=== PATIENT | male | born 1960 | race Caucasian/White ===

== ENCOUNTER 2017-03-04 03:18 | Inpatient (IN) | payer SELFPAY ==
[~2017-03-04] VITALS: Ht 180.3 cm; Wt 120.9 kg
[~2017-03-04 03:18] MED LIST: DIAZ5TAB PO; HYDR1TAB8 PO; HYOS0.1283 SL; ONDA4TAB8 PO; ZOLP10TA PO
--- OUTSIDE RECORDS SUMMARY | 2017-03-04 03:24 | XMS REPORT | Continuity of Care Document ---
Author Author [employer] Organization [place] Address Unknown Phone Unavailable Care Team Providers Care Air Tank Assembler Name Role Phone [employer] Unavailable Unavailable Problems Medications Allergies, Adverse Reactions, Alerts Immunizations Results Vital Signs Encounters Location Location Details Encounter Type Encounter Number Reason For Visit Attending Provider ADM Date DC Date Status Source INPATIENT [id number] DEMARIO DIAZ 11/12/2016 Active [facility] O 11/14/2016 Active [facility] Procedures Plan of Care Social History Assessment and Plan Family History Value Date Source Advance Directives Order Name Results Value Date Source
--- OUTSIDE RECORDS SUMMARY | 2017-03-04 03:24 | XMS REPORT | Clinical Summary ---
Author Author [facility] Organization [facility] Address Unknown Phone Unavailable Care Team Providers Care Psychological Examiner Name Role Phone PCP Unavailable Source Comments Some departments are not documenting in the electronic medical record. If you do not see the information that you expected, contact Release of Information in the Health Information Management department at [phone] for further assistance in locating additional records.[facility] Allergies No Known Allergies Current Medications Prescription Sig. Disp. Refills Start End Date Status Date oxycodone(+) (ROXICODONE, Take 20 mg by mouth every Active OXY-IR) 20 mg tablet 4 hours as needed acetaminophen (TYLENOL) Take 2 tablets by mouth 0 11/17/19 Active 500 mg tablet every 8 hours as needed 17 for Pain. Max of 4,000 mg of acetaminophen in 24 hours. gabapentin (NEURONTIN) Take 1 capsule by mouth 270 capsule 3 11/17/19 Active 300 mg capsule every 8 hours. 17 docusate (COLACE) 100 mg Take 1 capsule by mouth 180 capsule 3 Active capsule twice daily as needed for 17 Constipation. Hold for loose stools methocarbamol (ROBAXIN) Take 1 tablet by mouth 90 tablet 3 11/17/19 Active 750 mg tablet three times daily as 17 needed for Spasms. emu Apply to back three times 120 mL 11/17/19 Active a day as needed for pain 17 Active Problems Problem Noted Date Cellulitis 11/12/2016 Neuroforaminal stenosis of lumbar spine 11/12/2016 Cervical stenosis of spinal canal 11/05/2009 Family History Medical History Relation Name Comments Brain Tumor Maternal Grandfather Relation Name Status Comments Maternal Grandfather Social History Tobacco Use Types Packs/Day Years Used Date Current Every Day Smoker 1 38 Smokeless Tobacco: Never Used Alcohol Use Drinks/Week oz/Week Comments Yes rarely Sex Assigned at Date Recorded Not on file Last Filed Vital Signs Vital Sign Reading Time Taken Blood Pressure 140/82 11/16/2016 6:58 AM CDT Pulse 65 11/16/2016 6:58 AM CDT Temperature 36.4 C (97.6 F) 11/16/2016 6:58 AM CDT Respiratory Rate - - Oxygen Saturation 96% 11/16/2016 6:58 AM CDT Inhaled Oxygen - - Concentration Weight 122.5 kg (270 lb) 11/12/2016 1:23 PM CDT Height 180.3 cm (5' 11") 11/12/2016 1:23 PM CDT Body Mass Index 37.66 11/12/2016 1:23 PM CDT Plan of Treatment Health Maintenance Due Date Last Done Comments HEPATITIS C SCREENING 1961 PHYSICAL (COMPREHENSIVE) 01/27/1968 EXAM PERTUSSIS VACCINE 01/27/1972 TETANUS VACCINE 1978 COLORECTAL CANCER 2011 SCREENING INFLUENZA VACCINE 10/16/2016 Results Not on filefrom Last 3 Months
--- OUTSIDE RECORDS SUMMARY | 2017-03-04 03:25 | XMS REPORT ---
Author Author LATRICIA LUCAS [facility] Address [address] [place], [place] [address] Care Team Providers Care Pile Driving Nozzleman Name Role Phone LATRICIA LUCAS PCP Unavailable Allergies and Adverse Reactions Name Reaction Notes NO KNOWN DRUG ALLERGIES Plan of Treatment Not available. Medications Active Name Start Date Estimated Completion Date SIG Comments lisinopril-hydrochlorothiazide 10-12.5 mg oral tablet 04/06/2015 take 1 tablet by oral route once daily OxyContin 15 mg oral tablet,oral only,ext.rel.12 hr 07/15/2015 08/14/2015 take 1 tablet (15 mg) by oral route every 12 hours for 30 days Ambien CR 12.5 mg oral tablet,ext release multiphase 07/15/2015 take 1 tablet (12.5 mg) by oral route once daily at bedtime (for male) Name Start Date Expiration Date SIG Comments prednisone 20 mg oral tablet 04/09/2011 04/17/2011 4X2 days 3X2 days 2X2 days 1X2 Days Flonase 50 mcg/actuation nasal spray,suspension 04/09/2011 spray 1 spray in each nostril by intranasal route 2 times per day Flagyl 500 mg oral tablet 04/09/2011 04/16/2011 one three times daily Xanax 0.5 mg oral tablet 12/15/2013 01/14/2014 1/2 to 1 twice daily as needed for anxiety must last 30 days prednisone 20 mg oral tablet 12/15/2013 12/27/2013 2X4 days 1X4 days 1/2X4 days Celexa 20 mg oral tablet 03/06/2014 06/04/2014 take 1 tablet (20 mg) by oral route once daily for 30 days diazepam 5 mg oral tablet 03/06/2014 1/2 to 1 BID PRN Dexedrine Spansule 10 mg oral capsule, extended release 05/03/2015 06/02/2015 take 1 capsule (10 mg) by oral route once daily for 30 days Levaquin 500 mg oral tablet 06/20/2015 06/30/2015 take 1 tablet (500 mg) by oral route once daily for 10 days prednisone 20 mg oral tablet 06/20/2015 06/28/2015 4x2 days 3x2 days 2x2 days 1x2 days Discontinued Name Start Date Discontinued Date SIG Comments promethazine-codeine 6.25-10 mg/5 mL oral syrup 04/08/2015 07/17/2015 take 5 milliliters by oral route every 4-6 hours as needed, not to exceed 30 mL in 24 hours Ambien 10 mg oral tablet 07/05/2015 07/17/2015 take 1 tablet (10 mg) by oral route once daily at bedtime for 30 days Problem List Description Status Onset Eustachian Tube Dysfunction Active Depressive Disorder Active 03/06/2014 Insomnia Active 03/06/2014 Insomnia Active 12/31/2014 Hypersomnolence disorder, acute, moderate Active 05/03/2015 Insomnia, unspecified type Active 05/03/2015 NINA on CPAP Active 05/03/2015 Essential Hypertension Active 05/03/2015 Vital Signs Date Time BP-Sys(mm[Hg] BP-Malia(mm[Hg]) HR(bpm) RR(rpm) Temp WT HT HC BMI BSA BMI Percentile O2 Sat(%) 07/12/2015 10:11:00 AM 152 mmHg 70 mmHg 90 bpm 16 rpm 95.8 F 269 lbs 71 in 37.52 kg/m2 2.47 m2 95 % 05/03/2015 7:34:00 AM 120 mmHg 76 mmHg 96 bpm 20 rpm 98.2 F 250 lbs 71 in 34.8676 kg/m 2.3834 m 96 % 03/23/2015 1:34:00 PM 158 mmHg 92 mmHg 92 bpm 16 rpm 97.9 F 261 lbs 71 in 36.40 kg/m2 2.44 m2 96 % 01/07/2015 11:10:00 AM 250 lbs 71 in 34.8676 kg/m 2.3834 m 12/28/2014 10:24:00 AM 165 mmHg 95 mmHg 96 bpm 18 rpm 98.6 F 259 lbs 71 in 36.12 kg/m2 2.43 m2 96 % 03/05/2014 9:18:00 AM 160 mmHg 80 mmHg 106 bpm 20 rpm 97.5 F 262 lbs 71 in 36.5412 kg/m 2.4399 m 94 % 12/15/2013 8:23:00 AM 140 mmHg 76 mmHg 80 bpm 20 rpm 98.6 F 245 lbs 71 in 34.17 kg/m2 2.36 m2 99 % 12/15/2012 1:25:00 PM 204 mmHg 98 mmHg 122 bpm 24 rpm 98.2 F 257 lbs 71 in 35.8439 kg/m 2.4165 m 97 % 04/09/2011 10:30:00 AM 158 mmHg 100 mmHg 84 bpm 224 lbs 71 in 31.24 kg/m2 2.26 m2 Social History Name Description Comments Tobacco Current every day smoker Alcohol Use History of Procedures Date Ordered Description Order Status 01/07/2015 12:00 AM METABOLIC PANEL TOTAL CA Reviewed 01/07/2015 12:00 AM ASSAY OF PSA TOTAL Reviewed 01/07/2015 12:00 AM ELECTROCARDIOGRAM COMPLETE Reviewed 04/08/2015 12:00 AM Decadron, Per 1 Mg [facility]# [address]-63 Reviewed 05/03/2015 12:00 AM Decadron, Per 1 Mg [facility]# [address]-10 Reviewed 07/12/2015 12:00 AM MRI LUMBAR SPINE W/O DYE Returned 07/12/2015 12:00 AM MRI CHEST SPINE W/O DYE Returned 12/15/2012 12:00 AM CAPILLARY BLOOD DRAW Reviewed 12/15/2012 12:00 AM GLUCOSE BLOOD TEST Reviewed 12/15/2012 12:00 AM GLUCOSE BLOOD TEST Reviewed 12/15/2012 12:00 AM ELECTROCARDIOGRAM COMPLETE Reviewed 10/31/2009 12:00 AM MUSCLE TEST 3 LIMBS Reviewed 10/31/2009 12:00 AM NERVE CONDUCTION, MOTOR Reviewed 10/31/2009 12:00 AM NERVE CONDUCTION, SENSORY Reviewed Results Summary Data and Description Results 01/07/2015 12:25 PM GLUCOSE 89.0 mg/dLSODIUM 137.0 mmol/LPOTASSIUM 5.10 mmol/ LCHLORIDE 98.0 mmol/LCO2 30.0 mmol/LBUN 15.0 mg/dLCREATININE 0.80 mg/dLCALCIUM 9.90 mg/dLeGFR >60 mL/min/1.73mPSA TOTAL 0.450 ng/mL History Of Immunizations Not available. History of Past Illness Name Date of Onset Comments Eustachian Tube Dysfunction Pain in limb Oct 31 2009 12:07PM Skin Sensation Disturbance Oct 31 2009 12:07PM Muscle weakness Oct 31 2009 12:07PM Depressive Disorder 03/06/2014 secondary to the unexpect loss of his son Insomnia 12/31/2014 Hypersomnolence disorder, acute, moderate 05/03/2015 Insomnia, unspecified type 05/03/2015 NINA on CPAP 05/03/2015 Essential Hypertension 05/03/2015 Eustachian Tube Dysfunction Apr 09 2011 10:32AM Post-nasal drainage Apr 09 2011 10:32AM Abdominal Pain, Generalized Dec 15 2012 1:26PM Nausea Dec 15 2012 1:26PM Weakness Dec 15 2012 1:26PM Dizziness Dec 17 2012 10:07AM Depressive Disorder Dec 15 2013 8:24AM Tobacco Abuse Dec 15 2013 8:24AM Sinusitis Dec 15 2013 8:24AM Depressive Disorder Mar 05 2014 9:18AM Insomnia Mar 05 2014 9:18AM Insomnia Dec 28 2014 10:24AM Abdominal pain Jan 07 2015 11:31AM Upper abdominal pain Jan 07 2015 11:31AM Chest pain Jan 07 2015 11:31AM Screening for prostate cancer Jan 07 2015 11:31AM Moderate Cough Worsening Mar 23 2015 1:38PM Acute bronchitis, unspecified organism Mar 23 2015 1:38PM Upper respiratory tract infection, unspecified upper respiratory infection Mar 23 2015 1:38PM Moderate Acute Respiratory System And Chest Symptoms Mar 23 2015 1:38PM Moderate Chronic Smoker Mar 23 2015 1:38PM Moderate Acute Respiratory System And Chest Symptoms May 03 2015 7:35AM Moderate Acute Nasal congestion May 03 2015 7:35AM Moderate NINA on CPAP Stable May 03 2015 7:35AM Insomnia, unspecified type May 03 2015 7:35AM Hypersomnolence disorder, acute, moderate May 03 2015 7:35AM Essential hypertension Stable May 03 2015 7:35AM Lumbar back pain Jul 12 2015 9:01AM Thoracic back pain Jul 12 2015 9:01AM Essential Hypertension Jul 12 2015 10:11AM Bilateral low back pain with sciatica, sciatica laterality unspecified Jul 12 2015 10:11AM Anxiety Disorder Jul 12 2015 10:11AM Lumbar spondylosis with myelopathy Jul 12 2015 10:11AM Primary insomnia Jul 12 2015 10:11AM Lumbar back pain Jul 18 2015 4:37PM Payers Insurance Name Company Name Plan Name Plan Number Policy Number Policy Group Number Start Date [employer]BS [facility] [id number] N/A History of Encounters Visit Date Visit Type Provider 07/12/2015 Office visit LATRICIA MOORE 05/31/2015 [facility] Sherif Gu MD 05/03/2015 Office visit LATRICIA MOORE 03/23/2015 Office visit LATRICIA MOORE 01/24/2015 [facility] Mei Merino MD 01/07/2015 [facility] Sherif Gu MD 01/07/2015 Office visit Mei Merino MD 12/28/2014 Office visit LATRICIA MOORE 03/05/2014 Office visit LATRICIA MOORE 12/15/2013 Office visit LATRICIA MOORE 12/15/2012 Office visit LATRICIA MOORE 04/09/2011 Office visit LATRICIA MOORE 10/31/2009 Procedures Mike Orozco MD
--- OUTSIDE RECORDS SUMMARY | 2017-03-04 03:25 | XMS REPORT ---
Author Author LATRICIA LUCAS [facility] Address [address] [place], [place] [id number] Care Team Providers Care Golf Tournament Consultant Name Role Phone LATRICIA LUCAS PCP Unavailable Allergies and Adverse Reactions Name Reaction Notes NO KNOWN DRUG ALLERGIES Plan of Treatment Not available. Medications Active Name Start Date Estimated Completion Date SIG Comments lisinopril-hydrochlorothiazide 10-12.5 mg oral tablet 04/06/2015 take 1 tablet by oral route once daily promethazine-codeine 6.25-10 mg/5 mL oral syrup 04/08/2015 take 5 milliliters by oral route every 4-6 hours as needed, not to exceed 30 mL in 24 hours prednisone 20 mg oral tablet 05/03/2015 05/11/2015 4x2 days 3x2 days 2x2 days 1x2 days Dexedrine Spansule 10 mg oral capsule, extended release 05/03/2015 06/02/2015 take 1 capsule (10 mg) by oral route once daily for 30 days Levaquin 500 mg oral tablet 05/03/2015 05/13/2015 take 1 tablet (500 mg) by oral route once daily for 10 days Name Start Date Expiration Date SIG Comments [...] tablet 03/06/2014 1/2 to 1 BID PRN Ambien 10 mg oral tablet 12/31/2014 03/01/2015 take 1 tablet (10 mg) by oral route once daily at bedtime for 30 days Problem List Description Status Onset Eustachian Tube Dysfunction Active Depressive Disorder Active 03/06/2014 Insomnia Active 03/06/2014 Insomnia Active 12/31/2014 Hypersomnolence disorder, acute, moderate Active 05/03/2015 Insomnia, unspecified type Active 05/03/2015 NINA on CPAP Active 05/03/2015 Essential hypertension Active 05/03/2015 Vital Signs Date Time BP-Sys(mm[Hg] BP-Malia(mm[Hg]) HR(bpm) RR(rpm) Temp WT HT HC BMI BSA BMI Percentile O2 Sat(%) 05/03/2015 7:34:00 AM 120 mmHg 76 mmHg 96 bpm 20 rpm 98.2 F 250 lbs 71 in 34.87 kg/m2 2.38 m2 96 % 03/23/2015 1:34:00 PM 158 mmHg 92 mmHg 92 bpm 16 rpm 97.9 F 261 lbs 71 in 36.4017 kg/m 2.4353 m 96 % 01/07/2015 11:10:00 AM 250 lbs 71 in 34.87 kg/m2 2.38 m2 12/28/2014 10:24:00 AM 165 mmHg 95 mmHg 96 bpm 18 rpm 98.6 F 259 lbs 71 in 36.1228 kg/m 2.4259 m 96 % 03/05/2014 9:18:00 AM 160 mmHg 80 mmHg 106 bpm 20 rpm 97.5 F 262 lbs 71 in 36.54 kg/m2 2.44 m2 94 % 12/15/2013 8:23:00 AM 140 mmHg 76 mmHg 80 bpm 20 rpm 98.6 F 245 lbs 71 in 34.17 kg/m2 2.3595 m 99 % 12/15/2012 1:25:00 PM 204 mmHg 98 mmHg 122 bpm 24 rpm 98.2 F 257 lbs 71 in 35.8439 kg/m 2.42 m2 97 % 04/09/2011 10:30:00 AM 158 mmHg 100 mmHg 84 bpm 224 lbs 71 in 31.24 kg/m2 2.2561 m Social History Name Description Comments Tobacco Current every day smoker Alcohol Use History of Procedures Date Ordered Description Order Status 01/07/2015 12:00 AM METABOLIC PANEL TOTAL CA Reviewed 01/07/2015 12:00 AM ASSAY OF PSA TOTAL Reviewed 01/07/2015 12:00 AM ELECTROCARDIOGRAM COMPLETE Reviewed 04/08/2015 12:00 AM Edgardo Perez 1 Mg [facility]# [id number] Reviewed 12/15/2012 12:00 AM CAPILLARY BLOOD DRAW Reviewed [...] type 05/03/2015 NINA on CPAP 05/03/2015 Essential hypertension 05/03/2015 Eustachian Tube Dysfunction Apr 09 2011 [...] Essential hypertension Stable May 03 2015 7:35AM Payers Insurance Name Company Name Plan Name Plan Number Policy Number Policy Group Number Start Date BCBS [facility] [id number] N/A History of Encounters Visit Date Visit Type Provider 05/03/2015 Office visit LATRICIA MOORE 03/23/2015 Office visit LATRICIA MOORE 01/24/2015 [facility] Mei Meirno MD 01/07/2015 [facility] Sherif Gu MD 01/07/2015 Office visit Mei Merino MD 12/28/2014 Office visit LATRICIA MOORE 03/05/2014 Office visit LATRICIA MOORE 12/15/2013 Office visit LATRICIA MOORE 12/15/2012 Office visit LATRICIA MOORE 04/09/2011 Office visit LATRICIA MOORE 10/31/2009 Procedures Mike Orozco MD
--- OUTSIDE RECORDS SUMMARY | 2017-03-04 03:25 | XMS REPORT ---
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
--- OUTSIDE RECORDS SUMMARY | 2017-03-04 03:25 | XMS REPORT ---
Author Author LATRICIA LUCAS [facility] Address [address] [place], [place] [id number] Care Team Providers Care Driver Recruiter Name Role Phone LATRICIA LUCAS PCP Unavailable LATRICIA LUCAS PreferredProvider Unavailable Allergies and Adverse Reactions Name Reaction Notes NO KNOWN DRUG ALLERGIES Plan of Treatment Planned Activity Comments Planned Date Planned Time Plan/Goal CBC with Differential 09/13/2016 12:00 AM CMP 09/13/2016 12:00 AM .Lipid Panel 09/13/2016 12:00 AM Medications Active Name Start Date Estimated Completion Date SIG Comments meloxicam 15 mg oral tablet 02/20/2016 take 1 tablet (15 mg) by oral route once daily lisinopril-hydrochlorothiazide 10-12.5 mg oral tablet 06/22/2016 take 1 tablet by oral route once daily Xanax 0.5 mg oral tablet 07/04/2016 take 1 tablet (0.5 mg) by oral route 3 times per day PRN anxiety hydrocodone-ibuprofen 7.5-200 mg oral tablet 08/14/2016 take 1 tablet by oral route every 6 hours as needed for pain not to exceed 5 tablets in 24hrs oxycodone 20 mg oral tablet 09/13/2016 10/13/2016 take 1 tablet (20 mg) by oral route every 4 hours for 30 days Name Start Date Expiration Date SIG [...] days 3x2 days 2x2 days 1x2 days OxyContin 20 mg oral tablet,oral only,ext.rel.12 hr 08/18/2015 09/17/2015 take 1 tablet (20 mg) by oral route every 12 hours for 30 days diazepam 5 mg oral tablet 09/02/2015 10/02/2015 1 tablet at bedtime prednisone 20 mg oral tablet 10/17/2015 10/25/2015 4x2 days 3x2 days 2x2 days 1x2 days phentermine 37.5 mg oral tablet 10/17/2015 11/16/2015 1 po in the am Bactrim DS 800-160 mg oral tablet 12/29/2015 01/12/2016 take 1 tablet by oral route 2 times a day for 14 days furosemide 40 mg oral tablet 06/22/2016 07/22/2016 take 1 tablet by oral route BID for 2 days then one daily Discontinued Name Start Date Discontinued Date SIG Comments promethazine-codeine 6.25-10 mg/5 mL oral syrup 04/08/2015 07/17/2015 take 5 milliliters by oral route every 4-6 hours as needed, not to exceed 30 mL in 24 hours Ambien 10 mg oral tablet 07/05/2015 07/17/2015 take 1 tablet (10 mg) by oral route once daily at bedtime for 30 days Ambien CR 12.5 mg oral tablet,ext release multiphase 07/15/2015 08/05/2015 take 1 tablet (12.5 mg) by oral route once daily at bedtime (for male) Robaxin 500 mg oral tablet 08/05/2015 08/18/2015 take 2 tablets (1,000 mg) by oral route 4 times per day OxyContin 15 mg oral tablet,oral only,ext.rel.12 hr 08/05/2015 08/18/2015 take 1 tablet (15 mg) by oral route every 12 hours for 30 days Problem List Description Status Onset Eustachian Tube Dysfunction Active Depressive Disorder Active 03/06/2014 Insomnia Active 03/06/2014 Insomnia Active 12/31/2014 Hypersomnolence disorder, acute, moderate Active 05/03/2015 Insomnia, unspecified type Active 05/03/2015 NINA on CPAP Active 05/03/2015 Essential hypertension Active 05/03/2015 Lumbar radiculitis Active 08/08/2015 Lumbar degenerative disc disease Active 08/08/2015 Spinal stenosis of lumbar region Active 08/08/2015 EVANGELINA (generalized anxiety disorder) Active 12/25/2015 Medication management Active 06/22/2016 Vital Signs Date Time BP-Sys(mm[Hg] BP-Malia(mm[Hg]) HR(bpm) RR(rpm) Temp WT HT HC BMI BSA BMI Percentile O2 Sat(%) 06/19/2016 8:37:00 AM 148 mmHg 80 mmHg 82 bpm 18 rpm 98.2 F 258 lbs 70 in 37.02 kg/m2 2.40 m2 94 % 02/20/2016 8:54:00 AM 150 mmHg 98 mmHg 88 bpm 16 rpm 98.2 F 273 lbs 71 in 38.0754 kg/m 2.4906 m 95 % 12/29/2015 7:47:00 AM 155 mmHg 82 mmHg 82 bpm 16 rpm 98 F 271 lbs 71 in 37.80 kg/m2 2.48 m2 97 % 12/19/2015 8:07:00 AM 142 mmHg 98 mmHg 95 bpm 16 rpm 97.8 F 268 lbs 71 in 37.378 kg/m 2.4677 m 97 % 10/17/2015 4:13:00 PM 140 mmHg 92 mmHg 82 bpm 18 rpm 97.1 F 271 lbs 71 in 37.80 kg/m2 2.48 m2 98 % 08/18/2015 2:44:00 PM 128 mmHg 72 mmHg 90 bpm 16 rpm 97.4 F 270 lbs 71 in 37.657 kg/m 2.4769 m 94 % 08/05/2015 10:02:00 AM 142 mmHg 80 mmHg 96 bpm 18 rpm 98.2 F 264 lbs 71 in 36.82 kg/m2 2.45 m2 90 % 07/12/2015 10:11:00 AM 152 mmHg 70 mmHg 90 bpm 16 rpm 95.8 F 269 lbs 71 in 37.5175 kg/m 2.4723 m 95 % 05/03/2015 7:34:00 AM 120 mmHg [...] 04/08/2015 12:00 AM Decadron, Per 1 Mg ND# [id number] Reviewed 05/03/2015 12:00 AM Decadron, Per 1 Mg NDC# [address]-09 Reviewed 07/12/2015 12:00 AM MRI LUMBAR SPINE W/O DYE Returned 07/12/2015 12:00 AM MRI CHEST SPINE W/O DYE Returned 07/18/2015 12:00 AM INJECT SPINE LUMBAR/SACRAL Returned 08/18/2015 12:00 AM ASSAY THYROID STIM HORMONE Returned 12/29/2015 12:00 AM EXTREMITY STUDY Returned 09/13/2016 12:00 AM ROUTINE VENIPUNCTURE Reviewed 12/15/2012 12:00 AM CAPILLARY BLOOD DRAW Reviewed 12/15/2012 12:00 AM GLUCOSE BLOOD TEST Reviewed 12/15/2012 12:00 AM GLUCOSE BLOOD TEST Reviewed 12/15/2012 12:00 AM ELECTROCARDIOGRAM COMPLETE Reviewed 10/31/2009 12:00 AM MUSCLE TEST 3 LIMBS Reviewed 10/31/2009 12:00 AM NERVE CONDUCTION, MOTOR Reviewed 10/31/2009 12:00 AM NERVE CONDUCTION, SENSORY Reviewed Results Summary Date and Description Results 01/07/2015 12:25 PM GLUCOSE 89.0 mg/dLSODIUM 137.0 mmol/LPOTASSIUM 5.10 mmol/ LCHLORIDE 98.0 mmol/LCO2 30.0 mmol/LBUN 15.0 mg/dLCREATININE 0.80 mg/dLCALCIUM 9.90 mg/dLAGE 54 GFR NonAA 101 GFR AA 122 eGFR >60 mL/min/1.73meGFR AA* >60 PSA TOTAL 0.450 ng/mL 08/18/2015 3:45 PM TSH 1.190 uIU/mL History Of Immunizations Not available. History of [...] NINA on CPAP 05/03/2015 Essential hypertension 05/03/2015 Lumbar radiculitis 08/08/2015 Lumbar degenerative disc disease 08/08/2015 Spinal stenosis of lumbar region 08/08/2015 EVANGELINA (generalized anxiety disorder) 12/25/2015 Medication management 06/22/2016 Eustachian Tube Dysfunction Apr 09 2011 10:32AM [...] Lumbar back pain Jul 18 2015 4:37PM Moderate Acute Lumbar radiculitis Aug 05 2015 10:03AM Moderate Lumbar degenerative disc disease Aug 05 2015 10:03AM Moderate Spinal stenosis of lumbar region Aug 05 2015 10:03AM Low back pain Aug 18 2015 2:47PM Essential hypertension Aug 18 2015 2:47PM Insomnia Aug 18 2015 2:47PM Obesity (BMI 30-39.9) Aug 18 2015 2:47PM Essential hypertension with goal blood pressure less than 130/80 Oct 17 2015 4:13PM Acute bilateral low back pain with bilateral sciatica Oct 17 2015 4:13PM Moderate Chronic Tobacco Abuse Oct 17 2015 4:13PM Obesity Oct 17 2015 4:13PM Hypersomnolence disorder, acute, moderate Oct 17 2015 4:13PM Insomnia, unspecified type Oct 17 2015 4:13PM Lumbar degenerative disc disease Oct 17 2015 4:13PM NINA on CPAP Oct 17 2015 4:13PM Spinal stenosis of lumbar region Oct 17 2015 4:13PM Tobacco Abuse Dec 19 2015 8:08AM Chronic Obstructive Pulmonary Disease Dec 19 2015 8:08AM Hypersomnolence disorder, acute, moderate Dec 19 2015 8:08AM Insomnia Dec 19 2015 8:08AM Lumbar degenerative disc disease Dec 19 2015 8:08AM Lumbar radiculitis Dec 19 2015 8:08AM NINA on CPAP Dec 19 2015 8:08AM Spinal stenosis of lumbar region Dec 19 2015 8:08AM EVANGELINA (generalized anxiety disorder) Dec 19 2015 8:08AM Edema Dec 29 2015 7:39AM Moderate Right Lower Pain Dec 29 2015 7:39AM Cellulitis of right lower extremity Dec 29 2015 7:47AM Moderate Acute Peripheral edema Dec 29 2015 7:47AM Moderate Essential Hypertension Feb 20 2016 8:55AM EVANGELINA (generalized anxiety disorder) Feb 20 2016 8:55AM Hypersomnolence disorder, acute, moderate Feb 20 2016 8:55AM Lumbar radiculitis Feb 20 2016 8:55AM NINA on CPAP Feb 20 2016 8:55AM Spinal stenosis of lumbar region Feb 20 2016 8:55AM Lumbago with sciatica, left side Jun 19 2016 8:37AM Lumbago with sciatica, right side Jun 19 2016 8:37AM Other chronic pain Jun 19 2016 8:37AM Essential hypertension Jun 19 2016 8:37AM EVANGELINA (generalized anxiety disorder) Jun 19 2016 8:37AM Hypersomnolence disorder, acute, moderate Jun 19 2016 8:37AM Insomnia Jun 19 2016 8:37AM Lumbar degenerative disc disease Jun 19 2016 8:37AM Lumbar radiculitis Jun 19 2016 8:37AM Obstructive sleep apnea (adult) (pediatric) Jun 19 2016 8:37AM Dependence on other enabling machines and devices Jun 19 2016 8:37AM Spinal stenosis of lumbar region Jun 19 2016 8:37AM Medication management Jun 19 2016 8:37AM nursing home prescription opiate use Sep 13 2016 9:30AM Hyperlipidemia, mild Sep 13 2016 9:30AM Prostate cancer screening Sep 13 2016 9:30AM Fatigue Sep 13 2016 9:30AM Payers Insurance Name Company Name Plan Name Plan Number Policy Number Policy Group Number [id number]A History of Encounters Visit Date Visit Type Provider 09/13/2016 Office visit LATRICIA MOORE 06/19/2016 Office visit LATRICIA MOORE 02/20/2016 Office visit LATRICIA MOORE 12/29/2015 Office visit LATRICIA MOORE 12/19/2015 Office visit LATRICIA MOORE 10/17/2015 Office visit LATRICIA MOORE 08/18/[address] Keanu Lane MD 08/05/2015 Office visit LATRICIA MOORE 07/12/2015 Office visit LATRICIA MOORE 05/31/2015 Hospital Sherif Gu MD 05/03/2015 Office visit LATRICIA MOORE 03/23/2015 Office visit LATRICIA MOORE 01/24/2015 [facility] Mei Merino MD 01/07/2015 [facility] Sherif Gu MD 01/07/2015 Office visit Mei Merino MD 12/28/2014 Office visit LATRICIA MOORE 03/05/2014 Office visit LATRICIA MOORE 12/15/2013 Office visit LATRICIA MOORE 12/15/2012 Office visit LATRICIA MOORE 04/09/2011 Office visit LATRICIA MOORE 10/31/2009 Procedures Mike Orozco MD
--- OUTSIDE RECORDS SUMMARY | 2017-03-04 03:26 | XMS REPORT ---
Author Author LATRICIA LUCAS [facility] Address [address] [place], [place] [address] Care Team Providers Care Dietitian Consultant Name Role Phone LATRICIA LUCAS PCP LATRICIA LUCAS PreferredProvider Allergies and Adverse Reactions Name Reaction Notes NO KNOWN DRUG ALLERGIES Plan of Treatment Planned Activity Comments Planned Date Planned Time Plan/Goal CBC with Differential 02/18/2017 12:00 AM Medications Active Name Start Date Estimated Completion Date SIG Comments meloxicam 15 mg oral tablet 02/20/2016 take 1 tablet (15 mg) by oral route once daily lisinopril-hydrochlorothiazide 10-12.5 mg oral tablet 06/22/2016 take 1 tablet by oral route once daily econazole 1 % topical cream 11/11/2016 apply to the affected and surrounding areas of skin by topical route twice daily Xanax 0.5 mg oral tablet 12/14/2016 take 1 tablet (0.5 mg) by oral route 3 times per day PRN anxiety Keflex 500 mg oral capsule 02/13/2017 02/20/2017 take 1 capsule (500 mg) by oral route 4 times per day for 7 days oxycodone 20 mg oral tablet 02/18/2017 03/20/2017 take 1 tablet (20 mg) by oral [...] route every 12 hours for 30 days Bactrim DS 800-160 mg oral tablet 11/11/2016 02/18/2017 take 1 tablet by oral route 2 times a day for 10 days hydrocodone-ibuprofen 7.5-200 mg oral tablet 02/13/2017 02/18/2017 take 1 tablet by oral route every 6 hours as needed for pain not to exceed 5 tablets in 24hrs Problem List Description Status Onset Eustachian Tube [...] disorder) Active 12/25/2015 Medication management Active 06/22/2016 Smoker Active 09/29/2016 Weakness of both lower extremities Active 11/10/2016 Vital Signs Date Time BP-Sys(mm[Hg] BP-Malia(mm[Hg]) HR(bpm) RR(rpm) Temp WT HT HC BMI BSA BMI Percentile O2 Sat(%) 02/13/2017 2:13:00 PM 142 mmHg 80 mmHg 80 bpm 16 rpm 97.3 F 263 lbs 71 in 36.68 kg/m2 2.44 m2 98 % 11/08/2016 9:55:00 AM 158 mmHg 88 mmHg 90 bpm 18 rpm 96.9 F 270 lbs 70 in 38.7406 kg/m 2.4594 m 98 % 09/13/2016 10:02:00 AM 130 mmHg 88 mmHg 74 bpm 16 rpm 90 F 260 lbs 70 in 37.31 kg/m2 2.41 m2 95 % 06/19/2016 8:37:00 AM 148 mmHg 80 mmHg 82 bpm 18 rpm 98.2 F 258 lbs 70 in 37.0188 kg/m 2.4041 m 94 % 02/20/2016 8:54:00 AM 150 mmHg 98 mmHg 88 bpm 16 rpm 98.2 F 273 lbs 71 in 38.08 kg/m2 2.49 m2 95 % 12/29/2015 7:47:00 AM 155 mmHg 82 mmHg 82 bpm 16 rpm 98 F 271 lbs 71 in 37.7964 kg/m 2.4815 m 97 % 12/19/2015 8:07:00 AM 142 mmHg 98 mmHg 95 bpm 16 rpm 97.8 F 268 lbs 71 in 37.38 kg/m2 2.47 m2 97 % 10/17/2015 4:13:00 PM 140 mmHg 92 mmHg 82 bpm 18 rpm 97.1 F 271 lbs 71 in 37.7964 kg/m 2.4815 m 98 % 08/18/2015 2:44:00 PM 128 mmHg 72 mmHg 90 bpm 16 rpm 97.4 F 270 lbs 71 in 37.66 kg/m2 2.48 m2 94 % 08/05/2015 10:02:00 AM 142 mmHg 80 mmHg 96 bpm 18 rpm 98.2 F 264 lbs 71 in 36.8201 kg/m 2.4492 m 90 % 07/12/2015 10:11:00 AM 152 mmHg [...] 04/08/2015 12:00 AM Decadron, Per 1 Mg [facility]# [id number] Reviewed 05/03/2015 12:00 AM Decadron, Per 1 Mg [facility]# [address]-69 Reviewed 07/12/2015 12:00 AM MRI LUMBAR SPINE W/O DYE Returned 07/12/2015 12:00 AM MRI CHEST SPINE W/O DYE Returned 07/18/2015 12:00 AM INJECT SPINE LUMBAR/SACRAL Returned 08/18/2015 12:00 AM ASSAY THYROID STIM HORMONE Returned 12/29/2015 12:00 AM EXTREMITY STUDY Returned 09/13/2016 12:00 AM COMPLETE CBC W/AUTO DIFF WBC Returned 09/13/2016 12:00 AM COMPREHEN METABOLIC PANEL Returned 09/13/2016 12:00 AM LIPID PANEL Returned 09/13/2016 12:00 AM Prostate Cancer Screening Returned 09/13/2016 12:00 AM ROUTINE VENIPUNCTURE Reviewed 11/08/2016 12:00 AM Decadron 8mg Injection Reviewed 11/08/2016 12:00 AM THER/PROPH/DIAG INJ SC/IM Reviewed 02/18/2017 12:00 AM ROUTINE VENIPUNCTURE Reviewed 12/15/2012 12:00 [...] mL/min/1.73meGFR AA* >60 PSA TOTAL 0.450 ng/mL History Of Immunizations Not [...] (generalized anxiety disorder) 12/25/2015 Medication management 06/22/2016 Smoker 09/29/2016 Weakness of both lower extremities 11/10/2016 Eustachian Tube Dysfunction Apr 09 2011 10:32AM [...] 8:37AM Medication management Jun 19 2016 8:37AM [facility] prescription opiate use Sep 13 2016 9:30AM Hyperlipidemia, mild Sep 13 2016 9:30AM Prostate cancer screening Sep 13 2016 9:30AM Fatigue Sep 13 2016 9:30AM Morbid obesity due to excess calories Sep 13 2016 10:03AM Essential hypertension Sep 13 2016 10:03AM EVANGELINA (generalized anxiety disorder) Sep 13 2016 10:03AM Hypersomnolence disorder, acute, moderate Sep 13 2016 10:03AM Insomnia Sep 13 2016 10:03AM Lumbar degenerative disc disease Sep 13 2016 10:03AM Medication management Sep 13 2016 10:03AM Obstructive sleep apnea (adult) (pediatric) Sep 13 2016 10:03AM Dependence on other enabling machines and devices Sep 13 2016 10:03AM Spinal stenosis of lumbar region Sep 13 2016 10:03AM Smoker Sep 13 2016 10:03AM Lumbago with sciatica, left side Nov 08 2016 9:55AM Lumbago with sciatica, right side Nov 08 2016 9:55AM Lumbar radiculitis Nov 08 2016 9:55AM Spinal stenosis of lumbar region Nov 08 2016 9:55AM Weakness of both lower extremities Nov 08 2016 9:55AM Tooth ache Feb 13 2017 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 Feb 18 2017 8:25AM Hyperlipidemia, mild Feb 18 2017 8:25AM Prostate cancer screening Feb 18 2017 8:25AM Fatigue Feb 18 2017 8:25AM Payers Insurance Name Company Name Plan Name Plan Number Policy Number Policy Group Number [id number] N/A History of Encounters Visit Date Visit Type Provider 02/18/2017 Laboratory LATRICIA MOORE 02/13/2017 Office visit LATRICIA MOORE 11/08/2016 Office visit LATRICIA MOORE 09/13/2016 Office visit LATRICIA MOORE 06/19/2016 Office [...] Office visit LATRICIA MOORE 01/24/2015 Hospital Mei Merino MD 01/07/2015 [facility] Sherif Gu MD 01/07/2015 Office visit Mei Merino MD 12/28/2014 Office visit LATRICIA MOORE 03/05/2014 Office visit LATRICIA MOORE 12/15/2013 Office visit LATRICIA MOORE 12/15/2012 Office visit LATRICIA MOORE 04/09/2011 Office visit LATRICIA MOORE 10/31/2009 Procedures Mike Orozco MD
--- OUTSIDE RECORDS SUMMARY | 2017-03-04 03:26 | XMS REPORT ---
Author Author LATRICIA LUCAS [facility] Address [address] [place], [place] [address] Care Team Providers Care Visitor Services Information Assistant Name Role Phone LATRIICA LUCAS PCP Unavailable LATRICIA LUCAS PreferredProvider Unavailable [...] Medication management Active 06/22/2016 Smoker Active 09/29/2016 Vital Signs Date Time BP-Sys(mm[Hg] BP-Malia(mm[Hg]) HR(bpm) RR(rpm) Temp WT HT HC BMI BSA BMI Percentile O2 Sat(%) 09/13/2016 10:02:00 AM 130 mmHg 88 mmHg [...] 04/08/2015 12:00 AM Decadron, Per 1 Mg [facility]# [id number] Reviewed 05/03/2015 12:00 AM Decadron, Per 1 Mg [facility]# [id number] Reviewed 07/12/2015 12:00 AM MRI LUMBAR SPINE [...] ng/mL 08/18/2015 3:45 PM TSH 1.190 uIU/mL 09/13/2016 2:50 PM WBC 10.7 RBC 5.09 HGB 15.40 g/dLHCT 47.10 %MCV 93.0 fLMCH 30.30 pgMCHC 32.70 g/dLRDW SD 47 RDW CV 13.70 %MPV 10.60 fLPLT 230 NRBC# 0.00 NRBC% 0.0 %NEUT 53.20 %%LYMP 34.60 %%MONO 9.20 %%EOS 2.20 %%BASO 0.50 %#NEUT 5.70 #LYMP 3.70 #MONO 0.98 #EOS 0.23 #BASO 0.05 MANUAL DIFF NOT IND TRIGLYCERIDES 90.0 mg/dLCHOLESTEROL 175.0 mg/dLHDL 45.0 mg/dLTOT CHOL/HDL 3.9 LDL (CALC) 112.0 mg/dLGLUCOSE 91.0 mg/dLSODIUM 138.0 mmol/LPOTASSIUM 4.50 mmol/ LCHLORIDE 103.0 mmol/LCO2 26.0 mmol/LBUN 19.0 mg/dLCREATININE 0.90 mg/dLSGOT/ AST 23.0 IU/LSGPT/ALT 33.0 IU/LALK PHOS 73.0 IU/LTOTAL PROTEIN 7.0 g/dLALBUMIN 4.30 g/dLTOTAL BILI 0.40 mg/dLCALCIUM 9.50 mg/dLAGE 56 GFR NonAA 88 GFR AA 107 eGFR >60 mL/min/1.73meGFR AA* >60 PSA TOTAL 0.690 ng/mL History Of Immunizations Not available. 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 Mei Merino MD 01/07/2015 [facility] Sherif Gu MD 01/07/2015 Office visit Mei Merino MD 12/28/2014 Office visit LATRICIA MOORE 03/05/2014 Office visit LATRICIA MOORE 12/15/2013 Office visit LATRICIA MOORE 12/15/2012 Office visit LATRICIA MOORE 04/09/2011 Office visit LATRICIA MOORE 10/31/2009 Procedures Mike Orozco MD
--- OUTSIDE RECORDS SUMMARY | 2017-03-04 03:27 | XMS REPORT ---
Author Author LATRICIA LUCAS [facility] Address [address] [place], [place] [address] Care Team Providers Care Supplier Quality Name Role Phone LATRICIA LUCAS PCP Unavailable Allergies and Adverse Reactions Name Reaction Notes NO KNOWN DRUG ALLERGIES Plan of Treatment Not available. Medications Active Name Start Date Estimated Completion Date SIG Comments lisinopril-hydrochlorothiazide 10-12.5 mg oral tablet 10/03/2015 take 1 tablet by oral route once daily Xanax 0.5 mg oral tablet 12/19/2015 take 1 tablet (0.5 mg) by oral route 3 times per day PRN anxiety meloxicam 15 mg oral tablet 02/20/2016 take 1 tablet (15 mg) by oral route once daily oxycodone 20 mg oral tablet 02/20/2016 03/21/2016 take 1 tablet (20 mg) by oral [...] 14 days furosemide 40 mg oral tablet 12/29/2015 01/28/2016 take 1 tablet by oral route BID [...] 08/08/2015 EVANGELINA (generalized anxiety disorder) Active 12/25/2015 Vital Signs Date Time BP-Sys(mm[Hg] BP-Malia(mm[Hg]) HR(bpm) RR(rpm) Temp WT HT HC BMI BSA BMI Percentile O2 Sat(%) 02/20/2016 8:54:00 AM 150 mmHg 98 mmHg [...] 04/08/2015 12:00 AM Decadron, Per 1 Mg [facility]# [address]-48 Reviewed 05/03/2015 12:00 AM Decadron, Per 1 Mg [facility]# [id number] Reviewed 07/12/2015 12:00 AM MRI LUMBAR SPINE W/O DYE Returned 07/12/2015 12:00 AM MRI CHEST SPINE W/O DYE Returned 07/18/2015 12:00 AM INJECT SPINE LUMBAR/SACRAL Returned 08/18/2015 12:00 AM ASSAY THYROID STIM HORMONE Returned 12/29/2015 12:00 AM EXTREMITY STUDY Returned 12/15/2012 12:00 AM CAPILLARY BLOOD DRAW [...] acute, moderate 05/03/2015 Insomnia, unspecified type 05/03/2015 NNIA on CPAP 05/03/2015 Essential hypertension 05/03/2015 Lumbar radiculitis 08/08/2015 Lumbar degenerative disc disease 08/08/2015 Spinal stenosis of lumbar region 08/08/2015 EVANGELINA (generalized anxiety disorder) 12/25/2015 Eustachian Tube Dysfunction Apr 09 2011 10:32AM [...] of lumbar region Feb 20 2016 8:55AM Payers Insurance Name Company Name Plan Name Plan Number Policy Number Policy Group Number Start Date BCBS Bcbs [facility] [id number] N/A History of Encounters Visit Date Visit Type Provider 02/20/2016 Office visit LATRICIA MOORE 12/29/2015 Office visit LATRICIA MOORE 12/19/2015 Office visit LATRICIA MOORE 10/17/2015 Office visit LATRICIA MOORE 08/18/[address] Keanu Lane MD 08/05/2015 Office visit LATRICIA MOORE 07/12/2015 Office visit LATRICIA MOORE 05/31/2015 Hospital Sherif Gu MD 05/03/2015 Office visit LATRICIA MOORE 03/23/2015 Office visit LATRICIA MOORE 01/24/2015 Hospital Mei Merino MD 01/07/2015 Hospital Sherif Gu MD 01/07/2015 Office visit Mei Merino MD 12/28/2014 Office visit LATRICIA MOORE 03/05/2014 Office visit LATRICIA MOORE 12/15/2013 Office visit LATRICIA MOORE 12/15/2012 Office visit LATRICIA MOORE 04/09/2011 Office visit LATRICIA MOORE 10/31/2009 Procedures Mike Orozco MD
--- OUTSIDE RECORDS SUMMARY | 2017-03-04 03:27 | XMS REPORT ---
Author Author Mei Merino Organization [facility] Address [address] [place], [place] [address] Care Team Providers Care Smokehouse Worker Name Role Phone Mei Merino PCP Unavailable Allergies and Adverse Reactions Name Reaction Notes NO KNOWN DRUG ALLERGIES Plan of Treatment Planned Activity Comments Planned Date Planned Time Plan/Goal METABOLIC PANEL TOTAL CA 01/07/2015 12:00 AM ASSAY OF PSA TOTAL 01/07/2015 12:00 AM ELECTROCARDIOGRAM COMPLETE 01/07/2015 12:00 AM Medications Active Name Start Date Estimated Completion Date SIG Comments Ambien 10 mg oral tablet 12/31/2014 03/01/2015 take 1 tablet (10 mg) by oral route once daily at bedtime for 30 days Name Start Date Expiration [...] tablet 03/06/2014 1/2 to 1 BID PRN Problem List Description Status Onset Eustachian Tube Dysfunction Active Depressive Disorder Active 03/06/2014 Insomnia Active 03/06/2014 Insomnia Active 12/31/2014 Vital Signs Date Time BP-Sys(mm[Hg] BP-Malia(mm[Hg]) HR(bpm) RR(rpm) Temp WT HT HC BMI BSA BMI Percentile O2 Sat(%) 01/07/2015 11:10:00 AM 250 lbs 71 in [...] rpm 98.6 F 245 lbs 71 in 34.1702 kg/m 2.3595 m 99 % 12/15/2012 1:25:00 PM 204 mmHg 98 mmHg 122 bpm 24 rpm 98.2 F 257 lbs 71 in 35.84 kg/m2 2.42 m2 97 % 04/09/2011 10:30:00 AM 158 mmHg 100 mmHg 84 bpm 224 lbs 71 in 31.2413 kg/m 2.2561 m Social History Name Description Comments Tobacco Current every day smoker Alcohol Use History of Procedures Date Ordered Description Order Status 12/15/2012 12:00 AM CAPILLARY BLOOD DRAW Reviewed 12/15/2012 12:00 AM GLUCOSE BLOOD TEST Reviewed 12/15/2012 12:00 AM GLUCOSE BLOOD TEST Reviewed 12/15/2012 12:00 AM ELECTROCARDIOGRAM COMPLETE Reviewed 10/31/2009 12:00 AM MUSCLE TEST 3 LIMBS Reviewed 10/31/2009 12:00 AM NERVE CONDUCTION, MOTOR Reviewed 10/31/2009 12:00 AM NERVE CONDUCTION, SENSORY Reviewed Results Summary Not available. History Of Immunizations Not available. History of Past Illness Name Date of Onset Comments Eustachian Tube Dysfunction Pain in limb Oct 31 2009 12:07PM Skin Sensation Disturbance Oct 31 2009 12:07PM Muscle weakness Oct 31 2009 12:07PM Depressive Disorder 03/06/2014 secondary to the unexpect loss of his son Insomnia 12/31/2014 Eustachian Tube Dysfunction Apr 09 2011 10:32AM [...] for prostate cancer Jan 07 2015 11:31AM Payers Insurance Name Company Name Plan Name Plan Number Policy Number Policy Group Number Start Date Bcbs Bcbs [facility] [id number] N/A History of Encounters Visit Date Visit Type Provider 01/07/2015 Office visit Mei Merino MD 12/28/2014 Office visit LATRICIA MOORE 03/05/2014 Office visit LATRICIA MOORE 12/15/2013 Office visit LATRICIA MOORE 12/15/2012 Office visit LATRICIA MOORE 04/09/2011 Office visit LATRICIA MOORE 10/31/2009 Procedures Mike Orozco MD
--- OUTSIDE RECORDS SUMMARY | 2017-03-04 03:27 | XMS REPORT ---
Author Author LATRICIA LUCAS [facility] Address [address] [place], [place] [address] Care Team Providers Care Science Manager Name Role Phone LATRICIA LUCAS PCP Unavailable Allergies and Adverse Reactions Name Reaction Notes NO KNOWN DRUG ALLERGIES Plan of Treatment Planned Activity Comments Planned Date Planned Time Plan/Goal MRI LUMBAR SPINE W/O DYE 07/12/2015 12:00 AM MRI CHEST SPINE W/O DYE 07/12/2015 12:00 AM Medications Active Name Start Date Estimated Completion Date SIG Comments lisinopril-hydrochlorothiazide 10-12.5 mg oral tablet 04/06/2015 take 1 tablet by oral route once daily promethazine-codeine 6.25-10 mg/5 mL oral syrup 04/08/2015 take 5 milliliters by oral route every 4-6 hours as needed, not to exceed 30 mL in 24 hours Ambien 10 mg oral tablet 07/05/2015 09/03/2015 take 1 tablet (10 mg) by oral [...] Xanax 0.5 mg oral tablet 12/15/2013 01/14/2014 12 to 1 twice daily as needed for [...] days 3x2 days 2x2 days 1x2 days Problem List Description Status Onset Eustachian [...] 04/08/2015 12:00 AM Decadron, Per 1 Mg [facility]# [address]-27 Reviewed 05/03/2015 12:00 AM Decadron, Per 1 Mg [facility]# [address]-28 Reviewed 12/15/2012 12:00 AM CAPILLARY BLOOD DRAW [...] Thoracic back pain Jul 12 2015 9:01AM Payers Insurance Name Company Name Plan Name Plan Number Policy Number Policy Group Number [id number] N/A History of Encounters Visit Date Visit Type Provider 07/12/2015 Office visit LATRICIA MOORE 05/03/2015 Office visit LATRICIA MOORE 03/23/2015 Office visit LATRICIA MOORE 01/24/2015 [facility] Mei Merino MD 01/07/2015 [facility] Sherif Gu MD 01/07/2015 Office visit Mei Merino MD 12/28/2014 Office visit LATRICIA MOORE 03/05/2014 Office visit LATRICIA MOORE 12/15/2013 Office visit LATRICIA MOORE 12/15/2012 Office visit LATRICIA MOORE 04/09/2011 Office visit LATRICIA MOORE 10/31/2009 Procedures Miek Oorzco MD
--- OUTSIDE RECORDS SUMMARY | 2017-03-04 03:27 | XMS REPORT | CCD ---
Author Author MAHAMED CONNOR Organization Unknown Address [address] [facility] [address] [place], [place] [address] Care Team Providers Care Channeling Machine Operator Name Role Phone Mei DUBOSE MD Attphys Vital Signs Vital Sign Value Unit Date/Time Recent/Initial? BP Systolic 147 mmHg 01/24/2015 08:04 Initial VS BP Diastolic 83 mmHg 01/24/2015 08:04 Initial VS Respiratory Rate 21 bpm 01/24/2015 08:04 Initial VS Heart Rate 88 bpm 01/24/2015 08:04 Initial VS O2 % BldC Oximetry 94 % 01/24/2015 08:04 Initial VS BP Systolic 116 mmHg 01/24/2015 08:24 Most Recent VS BP Diastolic 93 mmHg 01/24/2015 08:24 Most Recent VS Respiratory Rate 18 bpm 01/24/2015 08:24 Most Recent VS Heart Rate 84 bpm 01/24/2015 08:24 Most Recent VS O2 % BldC Oximetry 98 % 01/24/2015 08:24 Most Recent VS Allergies Allergy Code Allergy Type Reaction Status No Known Drug Allergies 0 No known drug allergies Active Procedures Procedure Code Procedure Type Date Cystourethroscopy 03230 CPT 01/24/2015 History of Immunizations Unknown or Not Available. Problems Unknown or Not Available. Results Unknown or Not Available. Active Medications Unknown or Not Available. Medications Administered During Visit Unknown or Not Available. Encounters Encounter Diagnosis Diagnosis Code Start Date Retention of urine, unspecified R339 01/24/2015 Social History Smoking Status Code Start Date End Date Current every day smoker 571843952 Patient Decision Aids Patient Decision Aid CYSTOSCOPY; AFTER THE PROCEDURE Discharge Instructions You were admitted to [facility] on 01/24/2015 with a principal diagnosis of Retention of urine, unspecified. You had the following procedures done: CYSTOSCOPY You were discharged from [facility] on 01/24/2015. Should you have any questions prior to discharge, please contact a member of your healthcare team. If you have left the hospital and have any questions, please contact your primary care physician. Chief Complaint and Reason For Visit Chief Complaint Date of Onset CYSTOSCOPY Function Status Unknown or Not Available. Plan of Care Unknown or Not Available. Referral/Transition of Care Unknown or Not Available.
--- OUTSIDE RECORDS SUMMARY | 2017-03-04 03:27 | XMS REPORT | CCD ---
Author Author MAHAMED CONNOR Organization Unknown Address [address] [facility] [address] [place], [place] [address] Care Team Providers Care Perinatal Tech Name Role Phone BANGURA, LEEANN DO Attphys BANGURA, LEEANN DO Prisurg Vital Signs Unknown or Not Available. Allergies Allergy Code Allergy Type Reaction Status No Known Drug Allergies 0 No known drug allergies Active Procedures Procedure Code Procedure Type Date INFLUENZA A & B 918669785 SNOMED CT 05/31/2015 CX CHEST [address] 05/31/[address] 1002350 SNOM[address] 05/31/2015 CULTURE BLOOD 92412392 SNOMED CT 05/31/2015 CULTURE BLOOD 47681174 SNOMED CT 05/31/2015 TROPONIN-I ADV 949543346 SNOMED CT 05/31/[address] 05/31/2015 C REACTIVE PROTEIN 62749016 SNOMED CT 05/31/2015 COMPREHENSIVE METABOLIC PANEL 331337099 SNOMED CT 2015 CBC W/ AUTO DIFF (RFLX MAN DIFF IF IND) 1819827 SNOMED CT 05/31/2015 ^CBC W/AUTO DIFF 0141157 SNOMED CT 05/31/2015 BAN AERO ECLIPSE TREATMENT 86537134 SNOMED CT 05/31/2015 History of Immunizations Unknown or Not Available. Problems Unknown or Not Available. Results COMPREHENSIVE METABOLIC PANEL - Collect Date/Time: 05/31/2015 17:55 Test Name Code Test Result Test Units Test Ref Range GLUCOSE 2345-7 102 MG/DL L=70 H=100 SODIUM 2951-2 133 MEQ/L L=135 H=148 POTASSIUM 2823-3 4.2 MEQ/L L=3.5 H=5.3 CHLORIDE 2075-0 98 MEQ/L L=96 H=110 CO2 2028-9 25 MEQ/L L=22 H=29 BUN 3094-0 19 MG/DL L=8 H=22 CREATININE 2160-0 0.8 MG/DL L=0.6 H=1.6 SGOT/AST 1920-8 24 IU/L L=10 H=40 SGPT/ALT 1742-6 34 IU/L L=8 H=54 ALK PHOS 6768-6 77 IU/L L=35 H=115 TOTAL PROTEIN 2885-2 6.8 G/DL L=5.5 H=8.5 ALBUMIN 1751-7 4.3 G/DL L=3.1 H=5.4 TOTAL BILI 1975-2 0.4 MG/DL L=0.0 H=1.5 CALCIUM 68503-6 10.2 MG/DL L=8.2 H=10.6 AGE 55 yrs GFR NonAA 101 GFR AA 122 eGFR >60 N/A eGFR AA* >60 N/A CBC W/ AUTO DIFF (RFLX MAN DIFF IF IND) - Collect Date/Time: 05/31/2015 17:55 Test Name Code Test Result Test Units Test Ref Range WBC 65894-0 10.4 TH/CMM L=4.5 H=10.8 RBC 789-8 4.78 ML/CMM L=4.70 H=6.10 HGB 718-7 15.2 G/DL L=14.0 H=18.0 HCT 4544-3 45.1 % L=42.0 H=52.0 MCV 94 FL L=81 H=99 MCH 31.8 PG L=27.0 H=33.0 MCHC 33.7 G/DL L=31.0 H=36.0 RDW SD 45 FL L=36 H=50 RDW CV 13.0 % L=0.0 H=14.8 MPV 9.3 FL L=9.3 H=12.5 PLT 777-3 279 TH/CMM L=130 H=440 NRBC# 0.00 TH/CMM L=0.00 H=0.00 NRBC% 0.0 /100WBC L=0.0 H=2.0 %NEUT 48.6 % %LYMP 33.9 % %MONO 11.5 % %EOS 5.6 % %BASO 0.4 % #NEUT 5.07 TH/CMM L=2.10 H=8.20 #LYMP 3.54 TH/CMM L=0.90 H=5.20 #MONO 1.20 TH/CMM L=0.16 H=1.00 #EOS 0.58 TH/CMM L=0.00 H=0.80 #BASO 0.04 TH/CMM L=0.00 H=0.20 MANUAL DIFF NOT IND N/A INFLUENZA A & B - Collect Date/Time: 05/31/2015 17:55 Test Name Code Test Result Test Units Test Ref Range INFLUENZA A & B 6437-8 NO INFLUENZA A OR B DETECTED N/A C REACTIVE PROTEIN - Collect Date/Time: 05/31/2015 17:55 Test Name Code Test Result Test Units Test Ref Range C REACTIVE PROTEIN 1988-5 0.7 MG/DL L=0.0 H= 1.0 TROPONIN-I ADV - Collect Date/Time: 05/31/2015 17:55 Test Name Code Test Result Test Units [place] [address]-0 <0.04 ng/mL L=0.04 H= 0.40 LACTIC ACID - Collect Date/Time: 05/31/2015 17:55 Test Name Code Test Result Test Units Test Ref Range LACTIC ACID 2524-7 1.2 mmol/L L=0.5 H=1.6 MAGNESIUM - Collect Date/Time: 05/31/2015 17:55 Test Name Code Test Result Test Units Test Ref Range MAGNESIUM 72979-0 2.1 MG/DL L=1.7 H=2.8 Active Medications Unknown or Not Available. Medications Administered During Visit Unknown or Not Available. Encounters Encounter Diagnosis Diagnosis Code Start Date Acute bronchitis 10767718 05/31/2015 Social History Smoking Status Code Start Date End Date Current every day smoker 825970206 Patient Decision Aids Unknown or Not Available. Discharge Instructions You were admitted to [facility] on 05/31/2015 17:39 with a principal diagnosis of Acute bronchitis, unspecified You had the following tests done: C REACTIVE PROTEIN CBC W/ AUTO DIFF (RFLX MAN DIFF IF IND) COMPREHENSIVE METABOLIC PANEL INFLUENZA A & B LACTIC ACID MAGNESIUM TROPONIN-I ADV You were discharged from [facility] on 05/31/2015 19:15 Should you have any questions prior to discharge, please contact a member of your healthcare team. If you have left the hospital and have any questions, please contact your primary care physician. Chief Complaint and Reason For Visit Chief Complaint Date of Onset SOB Function Status Unknown or Not Available. Plan of Care Unknown or Not Available. Referral/Transition of Care Unknown or Not Available.
--- OUTSIDE RECORDS SUMMARY | 2017-03-04 03:28 | XMS REPORT ---
Author Author LATRICIA LUCAS [facility] Address [address] [place], [place] [address] Care Team Providers Care Gear Inspector Name Role Phone LATRICIA LUCAS PCP Unavailable Allergies and Adverse Reactions Name Reaction Notes NO KNOWN DRUG ALLERGIES Plan of Treatment Planned Activity Comments Planned Date Planned Time Plan/Goal EXTREMITY STUDY 12/29/2015 12:00 AM Medications Active Name Start Date Estimated Completion Date SIG Comments meloxicam 15 mg oral tablet 08/05/2015 take 1 tablet (15 mg) by oral route once daily lisinopril-hydrochlorothiazide 10-12.5 mg oral tablet 10/03/2015 take 1 tablet by oral route once daily Xanax 0.5 mg oral tablet 12/19/2015 take 1 tablet (0.5 mg) by oral route 3 times per day PRN anxiety Name Start Date Expiration Date SIG Comments [...] 10/17/2015 11/16/2015 1 po in the am oxycodone 15 mg oral tablet 11/21/2015 12/21/2015 take 1 tablet (15 mg) by oral route every 6 hours for 30 days Discontinued Name Start Date Discontinued Date [...] HC BMI BSA BMI Percentile O2 Sat(%) 12/19/2015 8:07:00 AM 142 mmHg 98 mmHg [...] 12:00 AM Decadron, Per 1 Mg ND# [id number] Reviewed 05/03/2015 12:00 AM Decadron, Per 1 Mg ND# [address]-85 Reviewed 07/12/2015 12:00 AM MRI LUMBAR SPINE W/O DYE Returned 07/12/2015 12:00 AM MRI CHEST SPINE W/O DYE Returned 07/18/2015 12:00 AM INJECT SPINE LUMBAR/SACRAL Returned 08/18/2015 12:00 AM ASSAY THYROID STIM HORMONE Returned 12/15/2012 12:00 AM CAPILLARY BLOOD DRAW [...] 9.90 mg/dLeGFR >60 mL/min/1.73mPSA TOTAL 0.450 ng/mL 08/18/2015 3:45 PM TSH [...] Right Lower Pain Dec 29 2015 7:39AM Payers Insurance Name Company Name Plan Name Plan Number Policy Number Policy Group Number Start Date [facility] [id number] N/A History of Encounters Visit Date Visit Type Provider 12/29/2015 Office visit LATRICIA MOORE 12/19/2015 Office visit LATRICIA MOORE 10/17/2015 Office visit LATRICIA MOORE 08/18/[address] Keanu Lane MD 08/05/2015 Office visit LATRICIA MOORE 07/12/2015 Office visit LATRICIA MOORE 05/31/2015 Kimberly Gu MD 05/03/2015 Office visit LATRICIA MOORE 03/23/2015 Office visit LATRICIA MOORE 01/24/2015 Hospital Mei Merino MD 01/07/2015 [facility] Sherif Gu MD 01/07/2015 Office visit Mei Merino MD 12/28/2014 Office visit LATRICIA MOORE 03/05/2014 Office visit LATRICIA MOORE 12/15/2013 Office visit LATRICIA MOORE 12/15/2012 Office visit LATRICIA MOORE 04/09/2011 Office visit LATRICIA MOORE 10/31/2009 Procedures Mike Orozco MD
--- OUTSIDE RECORDS SUMMARY | 2017-03-04 03:28 | XMS REPORT ---
Author Author LATRICIA LUCAS [facility] Address [address] [place], [place] [address] Care Team Providers Care Training Development Manager Name Role Phone LATRICIA LUCAS PCP LATRICIA LUCAS PreferredProvider Allergies and Adverse Reactions Name Reaction Notes NO KNOWN DRUG ALLERGIES Plan of Treatment Planned Activity Comments Planned Date Planned Time Plan/Goal CBC with Differential 02/18/2017 12:00 AM CMP 02/18/2017 12:00 AM Medications Active Name Start [...] 04/08/2015 12:00 AM Decadron, Per 1 Mg [facility]# [id number] Reviewed 05/03/2015 12:00 AM Decadron, Per 1 Mg [facility]# [address]-00 Reviewed 07/12/2015 12:00 AM MRI LUMBAR SPINE [...] 8:37AM Medication management Jun 19 2016 8:37AM assisted prescription opiate use Sep 13 2016 9:30AM [...] 9:55AM Tooth ache Feb 13 2017 2:14PM assisted prescription opiate use Feb 18 2017 8:25AM Hyperlipidemia, mild Feb 18 2017 8:25AM Prostate cancer screening Feb 18 2017 8:25AM Fatigue Feb 18 2017 8:25AM Payers Insurance Name Company Name Plan Name Plan Number Policy Number Policy Group Number Start Date [facility] [id number] N/A History of Encounters Visit Date Visit [...]
--- OUTSIDE RECORDS SUMMARY | 2017-03-04 03:28 | XMS REPORT | Referral Summary ---
Author Author [facility] Organization [facility] Address Unknown Phone Unavailable Care Team Providers Care Sole Inker Name Role Phone Damián Buchanan PCP Encounter VC Date(s): 02/03/15 - 02/03/15 [facility] [address] [place], [place] [address] Discharge Diagnosis: History of adenomatous polyp of colon Discharge Diagnosis: Abdominal pain, RLQ Discharge Disposition: 01-Home or Self Care Attending Physician: Sherif Page III, MD Vital Signs Most recent to 1 oldest [Reference Range]: Temperature Oral 36.7 degC [35.8-37.3 degC] (02/03/15 8:23 AM) Peripheral Pulse 75 bpm Rate [60-100 bpm] (02/03/15 8:23 AM) Respiratory Rate 16 br/min [14-20 br/min] (02/03/15 8:23 AM) Blood Pressure 133/76 mmHg [90-140/60-90 mmHg] (02/03/15 8:23 AM) SpO2 95 % (02/03/15 8:23 AM) Problem List Condition Effective Dates Status Health Status Informant Obesity(Confirmed) Active patient Tobacco Active patient user(Confirmed) Allergies, Adverse Reactions, Alerts No Known Allergies Medications Ambien Oral, Bedtime (once a day), 0 Refill(s) Start Date: 02/01/15 Status: Ordered doxepin 10 mg oral capsule 10 mg 1 caps, Oral, Bedtime (once a day), # 30 caps, 0 Refill(s), Pharmacy: [id number], 1 caps Oral Bedtime (once a day) Start Date: 02/01/15 Status: Ordered Results No data available for this section Immunizations No data available for this section Procedures No data available for this section Social History Social History Type Response Smoking Status Current every day smoker; Type: Cigarettes; Tobacco use per day: 1 Pack; Number of years: 30 Assessment and Plan No data available for this section
--- OUTSIDE RECORDS SUMMARY | 2017-03-04 03:29 | XMS REPORT ---
Author Author LATRICIA LUCAS [facility] Address [address] [place], [place] [address] Care Team Providers Care Grease Refining Supervisor Name Role Phone LATRICIA LUCAS PCP Unavailable Allergies and Adverse Reactions Name Reaction Notes NO KNOWN DRUG ALLERGIES Plan of Treatment Not available. Medications Active Name Start Date Estimated Completion Date SIG Comments meloxicam 15 mg oral tablet 08/05/2015 take 1 tablet (15 mg) by oral route once daily lisinopril-hydrochlorothiazide 10-12.5 mg oral tablet 10/03/2015 take 1 tablet by oral route once daily oxycodone 15 mg oral tablet 10/17/2015 11/16/2015 take 1 tablet (15 mg) by oral route every 6 hours for 30 days phentermine 37.5 mg oral tablet 10/17/2015 11/16/2015 1 po in the am Name Start Date Expiration Date SIG Comments [...] CPAP Active 05/03/2015 Essential Hypertension Active 05/03/2015 Lumbar radiculitis Active 08/08/2015 Lumbar degenerative disc disease Active 08/08/2015 Spinal stenosis of lumbar region Active 08/08/2015 Vital Signs Date Time BP-Sys(mm[Hg] BP-Malia(mm[Hg]) HR(bpm) RR(rpm) Temp WT HT HC BMI BSA BMI Percentile O2 Sat(%) 10/17/2015 4:13:00 PM 140 mmHg 92 mmHg [...] 04/08/2015 12:00 AM Decadron, Per 1 Mg [facility]# [address]-96 Reviewed 05/03/2015 12:00 AM Decadron, Per 1 Mg [facility]# [address]-37 Reviewed 07/12/2015 12:00 AM MRI LUMBAR SPINE [...] NINA on CPAP 05/03/2015 Essential Hypertension 05/03/2015 Lumbar radiculitis 08/08/2015 Lumbar degenerative disc disease 08/08/2015 Spinal stenosis of lumbar region 08/08/2015 Eustachian Tube Dysfunction Apr 09 2011 10:32AM [...] of lumbar region Oct 17 2015 4:13PM Payers Insurance Name Company Name Plan Name Plan Number Policy Number Policy Group Number Start Date [facility] [id number] N/A History of Encounters Visit Date Visit Type Provider 10/17/2015 Office visit LATRICIA MOORE 08/18/[address] Keanu Lane MD 08/05/2015 Office visit LATRICIA MOORE 07/12/2015 Office visit LARTICIA MOORE 05/31/2015 [facility] Sherif Gu MD 05/03/2015 Office visit LATRICIA MOORE 03/23/2015 Office visit LATRICIA MOORE 01/24/2015 [facility] Mei Merino MD 01/07/2015 [facility] Sherif Gu MD 01/07/2015 Office visit Mei Mreino MD 12/28/2014 Office visit LATRICIA MOORE 03/05/2014 Office visit LATRICIA MOORE 12/15/2013 Office visit LATRICIA MOORE 12/15/2012 Office visit LATRICIA MOORE 04/09/2011 Office visit LATRICIA MOORE 10/31/2009 Procedures Mike Orozco MD
--- OUTSIDE RECORDS SUMMARY | 2017-03-04 03:29 | XMS REPORT ---
Author Author LATRICIA LUCAS [facility] Address [address] [place], [place] [address] Care Team Providers Care Materials And Corrosion Engineer Name Role Phone LATRICIA LUCAS PCP Unavailable Allergies and Adverse Reactions Name Reaction Notes NO KNOWN DRUG ALLERGIES Plan of Treatment Not available. Medications Active Name Start Date Estimated Completion Date SIG Comments lisinopril-hydrochlorothiazide 10-12.5 mg oral tablet 04/06/2015 take 1 tablet by oral route once daily Ambien 10 mg oral tablet 07/05/2015 09/03/2015 take 1 tablet (10 mg) by oral route once daily at bedtime for 30 days OxyContin 15 mg oral tablet,oral only,ext.rel.12 hr 07/15/2015 08/14/2015 take 1 tablet (15 mg) by oral route every 12 hours for 30 days Name Start Date [...] to exceed 30 mL in 24 hours Problem List Description Status Onset Eustachian Tube [...] 12:00 AM Decadron, Per 1 Mg ND# [id number] Reviewed 05/03/2015 12:00 AM Decadron, Per [address] [facility]# [address]-28 Reviewed 07/12/2015 12:00 AM MRI LUMBAR SPINE [...] 10:11AM Primary insomnia Jul 12 2015 10:11AM Payers Insurance Name Company Name Plan Name Plan Number Policy Number Policy Group Number [id number] N/A History of Encounters Visit Date Visit Type Provider 07/12/2015 Office visit LATRICIA MOORE 05/31/2015 [facility] Sherif Gu MD 05/03/2015 Office visit LATRICIA MOORE 03/23/2015 Office visit LATRICIA MOORE 01/24/2015 Hospital Mei Merino MD 01/07/2015 [facility] Sherif uG MD 01/07/2015 Office visit Mei Merino MD 12/28/2014 Office visit LATRICIA MOORE 03/05/2014 Office visit LATRICIA MOORE 12/15/2013 Office visit LATRICIA MOORE 12/15/2012 Office visit LATRICIA MOORE 04/09/2011 Office visit LATRICIA MOORE 10/31/2009 Procedures Mike Orozco MD
[2017-03-04] MEDS ORDERED: KETOROLAC 30 MG/ML VIAL IVP STA (03:30)
[2017-03-04] MEDS ORDERED: CLINDAMYCIN INJECTION 900 MG in NS (IVPB) 50 ML IV ONE (03:30)
--- OUTSIDE RECORDS SUMMARY | 2017-03-04 03:30 | XMS REPORT ---
Author Author LATRICIA LUCAS [facility] Address [address] [place], [place] [address] Care Team Providers Care Color Corrector Name Role Phone LATRICIA LUCAS PCP Unavailable [...] 1 tablet by oral route once daily hydrocodone-ibuprofen 7.5-200 mg oral tablet 08/14/2016 take 1 tablet by oral route every 6 hours as needed for pain not to exceed 5 tablets in 24hrs Bactrim DS 800-160 mg oral tablet 11/11/2016 take 1 tablet by oral route 2 times a day for 10 days econazole 1 % topical cream 11/11/2016 apply to the affected and surrounding areas of skin by topical route twice daily oxycodone 20 mg oral tablet 12/14/2016 01/13/2017 take 1 tablet (20 mg) by oral route every 4 hours for 30 days Xanax 0.5 mg oral tablet 12/14/2016 take [...] BID for 2 days then one daily Keflex 500 mg oral capsule 10/22/2016 10/29/2016 take 1 capsule (500 mg) by oral route 4 times per day for 7 days Discontinued Name Start Date Discontinued Date [...] HC BMI BSA BMI Percentile O2 Sat(%) 11/08/2016 9:55:00 AM 158 mmHg 88 mmHg 90 bpm 18 rpm 96.9 F 270 lbs 70 in 38.74 kg/m2 2.46 m2 98 % 09/13/2016 10:02:00 AM 130 mmHg 88 mmHg 74 bpm 16 rpm 90 F 260 lbs 70 in 37.3057 kg/m 2.4134 m 95 % 06/19/2016 8:37:00 AM 148 mmHg [...] 04/08/2015 12:00 AM Decadron, Per 1 Mg [facility]# [address]-47 Reviewed 05/03/2015 12:00 AM Decadron, Per 1 Mg [facility]# [address]-09 Reviewed 07/12/2015 12:00 AM MRI LUMBAR SPINE [...] 11/08/2016 12:00 AM THER/PROPH/DIAG INJ SC/IM Reviewed 12/15/2012 12:00 AM CAPILLARY BLOOD DRAW [...] 8:37AM Medication management Jun 19 2016 8:37AM [facility] prescription opiate use Sep 13 2016 9:30AM [...] both lower extremities Nov 08 2016 9:55AM Payers Insurance Name Company Name Plan Name Plan Number Policy Number Policy Group Number [id number] N/A History of Encounters Visit Date Visit Type Provider 11/08/2016 Office visit LATRICIA MOORE 09/13/2016 Office [...] MOORE 03/23/2015 Office visit LATRICIA MOORE 01/24/2015 [facility] Mei Merino MD 01/07/2015 [facility] Sherif Gu MD 01/07/2015 Office visit Mei Merino MD 12/28/2014 Office visit LATRICIA MOORE 03/05/2014 Office visit LATRICIA MOORE 12/15/2013 Office visit LATRICIA MOORE 12/15/2012 Office visit LATRICIA MOORE 04/09/2011 Office visit LATRICIA MOORE 10/31/2009 Procedures Mike Orozco MD
--- OUTSIDE RECORDS SUMMARY | 2017-03-04 03:30 | XMS REPORT ---
Author Author LATRICIA LUCAS [facility] Address [address] [place], [place] [address] Care Team Providers Care Guidance And Control System Engineer Name Role Phone LATRICIA LUCAS PCP [...] HC BMI BSA BMI Percentile O2 Sat(%) 12/28/2014 10:24:00 AM 165 mmHg 95 mmHg [...] 2014 9:18AM Insomnia Dec 28 2014 10:24AM Payers Insurance Name Company Name Plan Name Plan Number Policy Number Policy Group Number [facility] [id number] N/A History of Encounters Visit Date Visit Type Provider 12/28/2014 Office visit LATRICIA MOORE 03/05/2014 Office visit LATRICIA MOORE 12/15/2013 Office visit LATRICIA MOORE 12/15/2012 Office visit LATRICIA MOORE 04/09/2011 Office visit LATRICIA MOORE 10/31/2009 Procedures Mike Orozco MD
--- OUTSIDE RECORDS SUMMARY | 2017-03-04 03:31 | XMS REPORT ---
Author Author LATRICIA LUCAS [facility] Address [address] [place], [place] [address] Care Team Providers Care Placer Miner Name Role Phone LATRICIA LUCAS PCP Unavailable LATRICIA LUCAS PreferredProvider Unavailable Allergies and Adverse Reactions Name Reaction Notes NO KNOWN DRUG ALLERGIES Plan of Treatment Planned Activity Comments Planned Date Planned Time Plan/Goal Injection, Subcutaneous/IM 11/08/2016 12:00 AM Medications Active Name Start Date [...] not to exceed 5 tablets in 24hrs Name Start Date Expiration Date SIG Comments [...] 30 days diazepam 5 mg oral tablet 03/06/201403/19 to 1 BID PRN Dexedrine Spansule 10 [...] BID for 2 days then one daily oxycodone 20 mg oral tablet 09/13/2016 10/13/2016 take 1 tablet (20 mg) by oral route every 4 hours for 30 days Keflex 500 mg oral capsule 10/22/2016 10/29/2016 [...] 04/08/2015 12:00 AM Decadron, Per 1 Mg [facility]# [address]-29 Reviewed 05/03/2015 12:00 AM Decadron, Per 1 Mg [facility]# [address]-39 Reviewed 07/12/2015 12:00 AM MRI LUMBAR SPINE [...] 8:37AM Medication management Jun 19 2016 8:37AM 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 Keanu Lane MD 08/05/2015 Office visit LATRICIA MOORE 07/12/2015 Office visit LATRICIA MOORE 05/31/2015 [facility] Sherif Gu MD 05/03/2015 Office visit LATRICIA MOORE 03/23/2015 Office visit LATRICIA MOORE 01/24/2015 Hospital Mei Merino MD 01/07/2015 [facility] Sherif Gu MD 01/07/2015 Office visit Mei Merino MD 12/28/2014 Office visit LATRICIA MOORE 03/05/2014 Office visit LATRICIA MOORE 12/15/2013 Office visit LATRICIA MOORE 12/15/2012 Office visit LATRICIA MOORE 04/09/2011 Office visit LATRICIA MOORE 10/31/2009 Procedures Mike Orozco MD
--- OUTSIDE RECORDS SUMMARY | 2017-03-04 03:31 | XMS REPORT ---
Author Author Keanu Lane [facility] Address [address] [place], [place] [id number] Care Team Providers Care Hose Sprayer Name Role Phone Keanu Lane PCP Allergies and Adverse Reactions Name Reaction Notes NO KNOWN DRUG ALLERGIES Plan of Treatment Not available. Medications Active Name Start Date Estimated Completion Date SIG Comments lisinopril-hydrochlorothiazide 10-12.5 mg oral tablet 04/06/2015 take 1 tablet by oral route once daily meloxicam 15 mg oral tablet 08/05/2015 take 1 tablet (15 mg) by oral route once daily diazepam 5 mg oral tablet 1 tablet at bedtime oxycodone 15 mg oral tablet take 1 tablet (15 mg) by oral route every 6 hours for 30 days OxyContin 20 mg oral tablet,oral only,ext.rel.12 [...] HC BMI BSA BMI Percentile O2 Sat(%) 08/18/2015 2:44:00 PM 128 mmHg 72 mmHg [...] 04/08/2015 12:00 AM Decadron, Per 1 Mg [facility]# [address]-36 Reviewed 05/03/2015 12:00 AM Decadron, Per 1 Mg [facility]# [address]-16 Reviewed 07/12/2015 12:00 AM MRI LUMBAR SPINE [...] Obesity (BMI 30-39.9) Aug 18 2015 2:47PM Payers Insurance Name Company Name Plan Name Plan Number Policy Number Policy Group Number Start Date [facility] [id number] N/A History of Encounters Visit Date Visit Type Provider 08/18/[address] Keanu Lane MD 08/05/2015 Office visit LATRICIA MOORE 07/12/2015 Office visit LATRICIA MOORE 05/31/2015 [facility] Sherif Gu MD 05/03/2015 Office visit LATRICIA MOORE 03/23/2015 Office visit LATRICIA MOORE 01/24/2015 Hospital Mei Merino MD 01/07/2015 [facility] Sherif Gu MD 01/07/2015 Office visit Mei Merino MD 12/28/2014 Office visit LATRICIA MOORE 03/05/2014 Office visit LATRICIA MOORE 12/15/2013 Office visit LATRICIA MOORE 12/15/2012 Office visit LATRICIA MOORE 04/09/2011 Office visit LATRICIA MOORE 10/31/2009 Procedures Mike Orozco MD
--- OUTSIDE RECORDS SUMMARY | 2017-03-04 03:32 | XMS REPORT ---
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 Sep 13 2016 9:30AM [...] 9:55AM Tooth ache Feb 13 2017 2:14PM Payers Insurance Name Company Name Plan Name Plan Number Policy Number Policy Group Number Start Date BCBS [facility] [id number] N/A History of Encounters Visit Date Visit Type Provider 02/13/2017 Office visit LATRICIA MOORE 11/08/2016 Office visit LATRICIA LUCAS PA 09/13/2016 Office visit LATRICIA LUCAS PA 06/19/2016 Office visit LATRICIA LUCAS PA 02/20/2016 Office visit LATRICIA LUCAS PA 12/29/2015 Office visit LATRICIA LUCAS PA 12/19/2015 Office visit LATRICIA LUCAS PA 10/17/2015 Office visit LATRICIA MOORE 08/18/[address] Keanu Lane MD 08/05/2015 Office visit LATRICIA MOORE 07/12/2015 Office visit LATRICIA MOORE 05/31/2015 Hospital Sherif Gu MD 05/03/2015 Office visit LATRICIA MOORE 03/23/2015 Office visit LATRICIA MOORE 01/24/2015 [facility] Mei Merino MD 01/07/2015 [facility] Sherif Gu MD 01/07/2015 Office visit Mei Merino MD 12/28/2014 Office visit LATRICIA MOORE 03/05/2014 Office visit LATRICIA MOORE 12/15/2013 Office visit LATRICIA MOORE 12/15/2012 Office visit LATRICIA MOORE 04/09/2011 Office visit LATRICIA MOORE 10/31/2009 Procedures Mike Orozco MD
--- OUTSIDE RECORDS SUMMARY | 2017-03-04 03:33 | XMS REPORT ---
Author Author LATRICIA LUCAS [facility] Address [address] [place], [place] [address] Care Team Providers Care Computer Help Desk Representative Name Role Phone LATRICIA LUCAS PCP Unavailable [...] 04/08/2015 12:00 AM Decadron, Per [address] [facility]# [address]-99 Reviewed 05/03/2015 12:00 AM Decadron, Per [address] [facility]# [address]-17 Reviewed 07/12/2015 12:00 AM MRI LUMBAR SPINE [...] (generalized anxiety disorder) Dec 19 2015 8:08AM Payers Insurance Name Company Name Plan Name Plan Number Policy Number Policy Group Number Start Date BCBS [facility] [id number] N/A History of Encounters Visit Date Visit Type Provider 12/19/2015 Office visit LATRICIA MOORE 10/17/2015 Office visit LATRICIA MOORE 08/18/[address] Keanu Lane MD 08/05/2015 Office visit LATRICIA MOORE 07/12/2015 Office visit LATRICIA MOORE 05/31/2015 Hospital Sherif Gu MD 05/03/2015 Office visit LATRICIA MOORE 03/23/2015 Office visit LATRICIA MOORE 01/24/2015 [facility] Mei Merino MD 01/07/2015 [facility] Sherif Gu MD 01/07/2015 Office visit Mei Merino MD 12/28/2014 Office visit LATRICIA MOORE 03/05/2014 Office visit LATRICIA MOORE 12/15/2013 Office visit LATRICIA MOORE 12/15/2012 Office visit LATRICIA MOORE 04/09/2011 Office visit LATRICIA MOORE 10/31/2009 Procedures Mike Orozco MD
--- OUTSIDE RECORDS SUMMARY | 2017-03-04 03:33 | XMS REPORT ---
Author Author LATRICIA LUCAS [facility] Address [address] [place], [place] [address] Care Team Providers Care Title I Teacher Name Role Phone LATRICIA LUCAS PCP Unavailable [...] route 3 times per day PRN anxiety Bactrim DS 800-160 mg oral tablet 12/29/2015 01/12/2016 take 1 tablet by oral route 2 times a day for 14 days furosemide 40 mg oral tablet 12/29/2015 01/28/2016 take 1 tablet by oral route BID for 2 days then one daily oxycodone 15 mg oral tablet 12/29/2015 01/28/2016 take 1 tablet (15 mg) by oral route every 6 hours for 30 days Name Start Date [...] 10/17/2015 11/16/2015 1 po in the am Discontinued Name Start Date Discontinued Date SIG [...] HC BMI BSA BMI Percentile O2 Sat(%) 12/29/2015 7:47:00 AM 155 mmHg 82 mmHg [...] 04/08/2015 12:00 AM Decadron, Per 1 Mg [facility][NOTE 3]# [address]-46 Reviewed 05/03/2015 12:00 AM Decadron, Per 1 Mg [facility][NOTE 3]# [address]-56 Reviewed 07/12/2015 12:00 AM MRI LUMBAR SPINE [...] Acute Peripheral edema Dec 29 2015 7:47AM Payers Insurance Name Company Name Plan Name Plan Number Policy Number Policy Group Number Start Date BCBS [facility] [id number] N/A History of Encounters Visit Date Visit Type Provider 12/29/2015 Office visit LATRICIA MOORE 12/19/2015 Office visit LATRICIA MOORE 10/17/2015 Office visit LATRICIA MOORE 08/18/[address] Keanu Lane MD 08/05/2015 Office visit LATRICIA MOORE 07/12/2015 Office visit LATRICIA MOORE 05/31/2015 Hospital W Líus Gu MD 05/03/2015 Office visit LATRICIA MOORE 03/23/2015 Office visit LATRICIA MOORE 01/24/2015 [facility] Obdulia Merino MD 01/07/2015 [facility] Sherif Gu MD 01/07/2015 Office visit Mei Merino MD 12/28/2014 Office visit LATRICIA MOORE 03/05/2014 Office visit LATRICIA MOORE 12/15/2013 Office visit LATRICIA MOORE 12/15/2012 Office visit LATRICIA MOORE 04/09/2011 Office visit LATRICIA MOORE 10/31/2009 Procedures Mike Orozco MD
--- OUTSIDE RECORDS SUMMARY | 2017-03-04 03:34 | XMS REPORT ---
Author Author LATRICIA LUCAS [facility] Address [address] [place], [place] [address] Care Team Providers Care Store Manager Name Role Phone LATRICIA LUCAS PCP [...] once daily oxycodone 20 mg oral tablet 06/19/2016 07/19/2016 take 1 tablet (20 mg) by oral [...] 14 days furosemide 40 mg oral tablet 05/19/2016 06/18/2016 take 1 tablet by oral route BID [...] 04/08/2015 12:00 AM Decadron, Per 1 Mg [facility]# [address]-20 Reviewed 05/03/2015 12:00 AM Decadron, Per 1 Mg [facility]# [address]-66 Reviewed 07/12/2015 12:00 AM MRI LUMBAR SPINE [...] 8:37AM Medication management Jun 19 2016 8:37AM Payers Insurance Name Company Name Plan Name Plan Number Policy Number Policy Group Number Start Date [facility] [id number] N/A History of Encounters Visit Date Visit Type Provider 06/19/2016 Office visit LATRICIA MOORE 02/20/2016 Office visit LATRICIA MOORE 12/29/2015 Office visit LATRICIA MOORE 12/19/2015 Office visit LATRICIA MOORE 10/17/2015 Office visit LATRICIA MOORE 08/18/[address] Keanu Lane MD 08/05/2015 Office visit LATRICIA MOORE 07/12/2015 Office visit LATRICIA MOORE 05/31/2015 Kimberly Gu MD 05/03/2015 Office visit LATRICIA MOORE 03/23/2015 Office visit LATRICIA MOORE 01/24/2015 Hospital Mie Merino MD 01/07/2015 [facility] Sherif Gu MD 01/07/2015 Office visit Mei Merino MD 12/28/2014 Office visit LATRICIA MOORE 03/05/2014 Office visit LATRICIA MOORE 12/15/2013 Office visit LATRICIA MOORE 12/15/2012 Office visit LATRICIA MOORE 04/09/2011 Office visit LATRICIA MOORE 10/31/2009 Procedures Mike Orozco MD
--- OUTSIDE RECORDS SUMMARY | 2017-03-04 03:34 | XMS REPORT ---
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
--- OUTSIDE RECORDS SUMMARY | 2017-03-04 03:35 | XMS REPORT ---
Author Author LATRICIA LUCAS [facility] Address [address] [place], [place] [address] Care Team Providers Care Backup Administrator Name Role Phone LATRICIA LUCAS PCP Unavailable [...] 12:00 AM Decadron, Per 1 Mg [facility]# [address]-38 Reviewed 05/03/2015 12:00 AM Decadron, Per 1 Mg [facility]# [address]-14 Reviewed 07/12/2015 12:00 AM MRI LUMBAR SPINE [...] 8:37AM Medication management Jun 19 2016 8:37AM [facility] prescription opiate use Sep 13 2016 9:30AM [...] Policy Group Number Start Date BCBS [facility] [id number] N/A History of Encounters Visit Date Visit Type Provider 09/13/2016 Office visit LATRICIA MOORE 06/19/2016 Office visit LATRICIA MOORE 02/20/2016 Office visit LATRICIA MOORE 12/29/2015 Office visit LATRICIA MOORE 12/19/2015 Office visit LATRICIA MOORE 10/17/2015 Office visit LATRICIA MOORE 08/18/[address] Kaenu Lane MD 08/05/2015 Office visit LATRICIA MOORE 07/12/2015 Office visit LATRICIA MOORE 05/31/2015 Hospital Sherif Gu MD 05/03/2015 Office visit ALTRICIA MOORE 03/23/2015 Office visit LATRICIA MOORE 01/24/2015 [facility] Mei Merino MD 01/07/2015 [facility] Sherif Gu MD 01/07/2015 Office visit Mei Merino MD 12/28/2014 Office visit LATRICIA MOORE 03/05/2014 Office visit LATRICIA MOORE 12/15/2013 Office visit LATRICIA MOORE 12/15/2012 Office visit LATRICIA MOORE 04/09/2011 Office visit LATRICIA MOORE 10/31/2009 Procedures Mike Orozco MD
--- OUTSIDE RECORDS SUMMARY | 2017-03-04 03:36 | XMS REPORT ---
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
--- OUTSIDE RECORDS SUMMARY | 2017-03-04 03:36 | XMS REPORT | Referral Summary ---
Author Author [facility] Organization [facility] Address Unknown Phone Unavailable Care Team Providers Care Kiln Tender Name Role Phone Dewayne, Damián Gorman PCP Encounter VC Date(s): 02/01/15 - 02/01/15 [facility] [address] [place], [place] [address] Discharge Disposition: 01-Home or Self Care Attending Physician: Sherif Page III, MD Admitting Physician: Sherif Page III, MD Vital Signs Most recent to 1 oldest [Reference Range]: Apical Heart Rate 100 bpm [60-100 bpm] (02/01/15 2:12 PM) Blood Pressure 130/60 mmHg [90-140/60-90 mmHg] (02/01/15 2:12 PM) Problem List Condition Effective Dates Status Health Status Informant Obesity(Confirmed) Active patient Tobacco Active patient user(Confirmed) Allergies, Adverse Reactions, Alerts No Known Allergies Medications Ambien Oral, Bedtime (once a day), 0 Refill(s) Start Date: 02/01/15 Status: Ordered doxepin 10 mg oral capsule 10 mg 1 caps, Oral, Bedtime (once a day), # 30 caps, 0 Refill(s), Pharmacy: [facility] [id number], 1 caps Oral Bedtime (once a day) Start Date: 02/01/15 Status: Ordered Results No data available for this section Immunizations No data available for this section Procedures No data available for this section Social History Social History Type Response Smoking Status Current every day smoker; Type: Cigarettes; Tobacco use per day: 1 Pack Assessment and Plan No data available for this section
--- OUTSIDE RECORDS SUMMARY | 2017-03-04 03:37 | XMS REPORT | Continuity of Care Document ---
Author Author [facility] Organization [facility] Address Unknown Phone Unavailable Allergies Active Description Code Type Severity Reaction Onset Reported/Identified Relationship to Patient Clinical Status Yes No Known Allergies NKMA N/A N/A Yes No Allergy Information Available [id number] Drug Allergy Unknown N/A 2014 Medications There is no data. 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 Ot 441.4 10/28/2014 ANGELA MCKEON LABORER [employer] HOUSE Ot 562.10 10/28/2014 ANGELA MCKEON LABORER [employer] HOUSE Ot 608.89 10/29/2014 ANGELA MCKEONP Ot 441.4 10/29/2014 ANGELA MCKEONP Ot 562.10 10/29/2014 ANGELA MCKEONP Ot 608.89 11/16/2014 ANGELA MCKEONP Ot 441.4 11/16/2014 ANGELA MCKEONP Ot 562.10 11/16/2014 ANGELA MCKEON LABORER [employer] HOUSE Ot 608.89 11/16/2014 ANGELA MCKEON LABORER [employer] HOUSE Ot 441.4 11/16/2014 ANGELA MCKEONP Ot 562.10 11/16/2014 ANGELA MCKEONP Ot 608.89 12/14/2014 JEREMY RICHARDS DO Ot 211.3 BENIGN NEOPLASM LG BOWEL 12/14/2014 JEREMY RICHARDS DO Ot V76.51 SCREEN MAL NEOP-COLON 01/05/2015 ANGELA MCKEONP Ot 441.4 01/05/2015 ANGELA MCKEON Ot 562.10 01/05/2015 ANGELA MCKEON Ot 608.89 01/05/2015 JEREMY RICHARDS DO Ot V72.84 01/05/2015 JULIA MCNAMARA DO Ot E66.9 OBESITY, UNSPECIFIED 01/05/2015 JULIA MCNAMARA DO Ot F17.210 NICOTINE DEPENDENCE, CIGARETTES, UNCOMPL 01/05/2015 JULIA MCNAMARA DO Ot I71.4 ABDOMINAL AORTIC ANEURYSM, WITHOUT RUPTU 01/05/2015 JULIA MCNAMARA DO Ot K57.30 DVRTCLOS OF LG INT W/O PERFORATION OR AB 01/05/2015 JULIA MCNAMARA DO Ot K82.9 DISEASE OF GALLBLADDER, UNSPECIFIED 01/05/2015 JULIA MCNAMARA DO Ot R10.11 RIGHT UPPER QUADRANT PAIN 01/05/2015 ANGELA MCKEON Ot 441.4 01/05/2015 ANGELA MCKEON Ot 562.10 01/05/2015 ANGELA MCKEON Ot 608.89 01/05/2015 JEREMY RICHARDS DO Ot V72.84 11/01/2016 ANGELA MCKEON Ot 441.4 ABDOM AORTIC ANEURYSM 11/01/2016 ANGELA MCKEON Ot 562.10 DIVERTICULOSIS COLON (W/O MENT OF HEMORR 11/01/2016 ANGELA MCKEON Ot 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 Results There is no data. Encounters ACCT No. Visit Date/Time Discharge Status Pt. Type Provider Facility Loc./Unit Complaint [id number] 01/17/2015 09:43:00 01/17/2015 23:59:59 [facility] Outpatient JEREMY RICHARDS DO [facility] CARD RUQ PAIN [id number] 01/06/2015 08:57:00 01/06/2015 23:59:59 [facility] Outpatient RICHARDS JEREMY LAZARO [facility] RAD RUQ ADB PAIN [id number] 01/05/2015 09:03:00 01/05/2015 11:12:00 DIS Emergency JULIA MCNAMARA DO [facility] ER BLOATING, RT SIDED PAIN [id number] 12/14/2014 14:06:00 12/14/2014 17:40:00 DIS Outpatient JEREMY RICHARDS DO [facility] SDC SCREENING [id number] 12/09/2014 08:17:00 12/09/2014 23:59:59 CLS Outpatient JEREMY RICHARDS DO [facility] PREOP SCREENING [id number] 10/26/2014 12:15:00 10/26/2014 23:59:59 CLS Outpatient ANGELA MCKEON LABORER [employer]IDE HOUSE [facility] RAD TESTICULAR SWELLING [id number] 02/03/2015 07:40:00 02/03/2015 11:51:00 DIS Outpatient Sherif Page [facility] DS Gastro COLONP [id number] 02/01/2015 13:44:00 02/01/2015 23:59:00 DIS Outpatient Sherif Pagem [facility] Mur Gasto RLQP, POLYP [id number] 02/18/2017 08:46:02 02/18/2017 23:59:59 CLS Outpatient LATRICIA LUCAS [id number] 02/18/2017 08:35:16 02/18/2017 23:59:59 CLS Outpatient LATRICIA LUCAS [id number] 02/13/2017 08:41:39 02/13/2017 23:59:59 CLS Outpatient LATRICIA LUCAS [id number] 11/08/2016 10:11:34 11/08/2016 23:59:59 CLS Outpatient LATRICIA LUCAS [id number] 09/13/2016 08:26:48 09/13/2016 23:59:59 [facility] Outpatient LATRICIA LUCAS [id number] 06/19/2016 08:37:20 06/19/2016 23:59:59 CLS Outpatient LATRICIA LUCAS [id number] 02/20/2016 09:09:32 02/20/2016 23:59:59 CLS Outpatient LATRICIA LUCAS Sherif [id number] 12/29/2015 08:12:03 12/29/2015 23:59:59 CLS Outpatient LANCE LATRICIA Gorman [id number] 12/19/2015 08:50:39 12/19/2015 23:59:59 CLS Outpatient LATRICIA LUCAS Sherif [id number] 10/17/2015 16:52:53 10/17/2015 23:59:59 CLS Outpatient LANCE LATRICIA Gorman [id number] 05/03/2015 08:11:48 05/03/2015 23:59:59 CLS Outpatient LANCE LATRICIA Gorman [id number] 03/23/2015 09:44:25 03/23/2015 23:59:59 CLS Outpatient LANCE LATRICIA Gorman [id number] 03/20/2015 20:47:37 03/20/2015 23:59:59 CLS Outpatient Sherif Gu Gio [id number] 01/27/2015 15:18:25 01/27/2015 23:59:59 CLS Outpatient Angelique, V S [id number] 01/07/2015 11:57:46 01/07/2015 23:59:59 CLS Outpatient Angelique, V S [id number] 12/28/2014 10:41:00 12/28/2014 23:59:59 CLS Outpatient LATRICIA LUCAS [id number] 03/05/2014 10:01:23 03/05/2014 23:59:59 CLS Outpatient LATRICIA LUCAS [id number] 12/15/2013 08:43:22 12/15/2013 23:59:59 CLS Outpatient LATRICIA LUCAS
--- OUTSIDE RECORDS SUMMARY | 2017-03-04 03:37 | XMS REPORT ---
Author Author LATRICIA LUCAS [facility] Address [address] [place], [place] [address] Care Team Providers Care Corporate Communications Specialist Name Role Phone LATRICIA LUCAS PCP Unavailable Allergies and Adverse Reactions Name Reaction Notes NO KNOWN DRUG ALLERGIES Plan of Treatment Not available. Medications Active Name Start Date Estimated Completion Date SIG Comments lisinopril-hydrochlorothiazide 10-12.5 mg oral tablet 04/06/2015 take 1 tablet by oral route once daily meloxicam 15 mg oral tablet 08/05/2015 take 1 tablet (15 mg) by oral route once daily Robaxin 500 mg oral tablet 08/05/2015 take 2 tablets (1,000 mg) by oral route 4 times per day OxyContin 15 mg oral tablet,oral only,ext.rel.12 hr 08/05/2015 09/04/2015 take 1 tablet (15 mg) by oral [...] route once daily at bedtime (for male) Problem List Description Status Onset Eustachian Tube [...] HC BMI BSA BMI Percentile O2 Sat(%) 08/05/2015 10:02:00 AM 142 mmHg 80 mmHg [...] 04/08/2015 12:00 AM Decadron, Per 1 Mg [facility]# [address]-57 Reviewed 05/03/2015 12:00 AM Decadron, Per 1 Mg [facility]# [address]-15 Reviewed 07/12/2015 12:00 AM MRI LUMBAR SPINE W/O DYE Returned 07/12/2015 12:00 AM MRI CHEST SPINE W/O DYE Returned 07/18/2015 12:00 AM INJECT SPINE LUMBAR/SACRAL Returned 12/15/2012 12:00 AM CAPILLARY BLOOD DRAW [...] of lumbar region Aug 05 2015 10:03AM Payers Insurance Name Company Name Plan Name Plan Number Policy Number Policy Group Number Start Date BCBS [facility] [id number] N/A History of Encounters Visit Date Visit Type Provider 08/05/2015 Office visit LATRICIA MOORE 07/12/2015 Office visit LATRICIA MOORE 05/31/2015 [facility] Sherif Gu MD 05/03/2015 Office visit LATRICIA MOORE 03/23/2015 Office visit LATRICIA MOORE 01/24/2015 [facility] Mei Merino MD 01/07/2015 [facility] Sherif Gu MD 01/07/2015 Office visit Mei Merino MD 12/28/2014 Office visit LATRICIA MOORE 03/05/2014 Office visit LATRICIA MOORE 12/15/2013 Office visit LATRICIA MOORE 12/15/2012 Office visit LATRICIA MOORE 04/09/2011 Office visit LATRICIA MOORE 10/31/2009 Procedures Mike Orozco MD
--- OUTSIDE RECORDS SUMMARY | 2017-03-04 03:37 | XMS REPORT ---
Author Author [facility] Address [address] [place], [place] [id number] Care Team Providers Care Jack Spinner Name Role Phone Keanu Lane PCP Allergies and Adverse Reactions Name Reaction Notes NO KNOWN DRUG ALLERGIES Plan of Treatment Planned Activity Comments Planned Date Planned Time Plan/Goal ASSAY THYROID STIM HORMONE 08/18/2015 12:00 AM Medications Active Name Start Date [...] days diazepam 5 mg oral tablet 03/06/2014 to 1 BID PRN Dexedrine Spansule 10 [...] 04/08/2015 12:00 AM Decadron, Per [address] [facility]# [id number] Reviewed 05/03/2015 12:00 AM Decadron, Per [address] [facility]# [id number] Reviewed 07/12/2015 12:00 AM MRI LUMBAR SPINE [...] Policy Number [id number]A History of Encounters Visit Date Visit Type Provider 08/18/[address] Keanu Lane MD 08/05/2015 Office visit LATRICIA MOORE 07/12/2015 Office visit LATRICIA MOORE 05/31/2015 Hospital Sherif Gu MD 05/03/2015 Office visit LATRICIA MOORE 03/23/2015 Office visit LATRICIA MOORE 01/24/2015 [facility] Mei Merino MD 01/07/2015 [facility] Sherif Gu MD 01/07/2015 Office visit Mei Merino MD 12/28/2014 Office visit LATRICIA MOORE 03/05/2014 Office visit LATRICIA MOORE 12/15/2013 Office visit LATRICIA MOORE 12/15/2012 Office visit LATRICIA MOORE 04/09/2011 Office visit LATRICIA MOORE 10/31/2009 Procedures Mike Orozco MD
--- OUTSIDE RECORDS SUMMARY | 2017-03-04 03:37 | XMS REPORT ---
Author Author LATRICIA LUCAS [facility] Address [address] [place], [place] [address] Care Team Providers Care Investor Relations Director Name Role Phone LATRICIA LUCAS PCP Unavailable Allergies and Adverse Reactions Name Reaction Notes NO KNOWN DRUG ALLERGIES Plan of Treatment Not available. Medications Active Name Start Date Estimated Completion Date SIG Comments lisinopril-hydrochlorothiazide 10-12.5 mg oral tablet 04/06/2015 take 1 tablet by oral route once daily Levaquin 500 mg oral tablet 04/08/2015 04/18/2015 take 1 tablet (500 mg) by oral route once daily for 10 days promethazine-codeine 6.25-10 mg/5 mL oral syrup 04/08/2015 take 5 milliliters by oral route every 4-6 hours as needed, not to exceed 30 mL in 24 hours Name Start Date Expiration Date SIG Comments [...] HC BMI BSA BMI Percentile O2 Sat(%) 03/23/2015 1:34:00 PM 158 mmHg 92 mmHg [...] Reviewed 01/07/2015 12:00 AM ELECTROCARDIOGRAM COMPLETE Reviewed 12/15/2012 12:00 AM CAPILLARY BLOOD DRAW [...] Moderate Chronic Smoker Mar 23 2015 1:38PM Payers Insurance Name Company Name Plan Name Plan Number Policy Number Policy Group Number Start Date [facility] [id number] N/A History of Encounters Visit Date Visit Type Provider 03/23/2015 Office visit LATRICIA MOORE 01/24/2015 Hospital Mei Merino MD 01/07/2015 [facility] Sherif Gu MD 01/07/2015 Office visit Mei Merino MD 12/28/2014 Office visit LATRICIA MOORE 03/05/2014 Office visit LATRICIA MOORE 12/15/2013 Office visit LATRICIA MOORE 12/15/2012 Office visit LATRICIA MOORE 04/09/2011 Office visit LATRICIA MOORE 10/31/2009 Procedures Mike Orozco MD
--- NOTE | 2017-03-04 03:48 | ED EENT ---
History of Present Illness General Chief Complaint: Facial Problems Stated Complaint: SWOLLEN JAW Nursing Triage Note: Patient advises he began experiencing left side cheek and jaw pain in addition to swelling yesterday morning that has become progressively worse. He advises he was being treated for an abscess prior to a recent surgery, cavity noted to the left upper cainine upon assessment. Source: patient History of Present Illness Time seen by provider: 03:24 Initial Comments C/O LEFT JAW/CHEEK PAIN AND SWELLING SINCE YESTERDAY MORNING--GETTING WORSE SINCE 1999 [place] PT HAD RECENT DENTAL ABSCESS IN THIS AREA AND WAS TREATED WITH AUGMENTIN 875 MG X 10 DAYS--COMPLETED PRIOR TO HIS BACK SURGERY 11 DAYS AGO WAS TREATED BY GLADYS LUCAS IN [facility]. HAS NOT ATTEMPTED TO SEE A DENTIST FOR THIS PROBLEM STATES HE DOESN'T HAVE SIGNIFICANT PAIN IN THE TOOTH ITSELF NOW, JUST IN HIS JAW AND CHEEK NO KNOWN FEVER PT HAD LOWER BACK SURGERY IN [place] 11 DAYS AGO AND IS TO HAVE HIS FIRST FOLLOW UP APPOINTMENT LATER TODAY PT HAS BEEN TAKING OXYCODONE AND GABAPENTIN FOR PAIN--TOOK SOME JUST PRIOR TO ARRIVAL PCP: GLADYS LUCAS IN [facility] DENTIST--[place] Allergies and Home Medications Allergies Coded Allergies: No Allergy Information Available (Unverified , 03/04/17) Home Medications Hydrocodone/Ibuprofen 1 Each Tablet, 1 EACH PO Q4H, #20 Prescribed by: JULIA MCNAMARA on 01/05/15 1104 Hyoscyamine Sulfate 0.125 Mg Tab.subl, 1-2 TAB SL Q4H, #15 Prescribed by: JULIA MCNAMARA on 01/05/15 1104 Ondansetron 4 Mg Tab.rapdis, 4 MG PO Q4H, #10 Prescribed by: JULIA MCNAMARA on 01/05/15 1104 Zolpidem Tartrate 10 Mg Tablet, 10 MG PO HS, (Reported) Review of Systems Constitutional: no symptoms reported, No chills, No diaphoresis, No fever Ears: No Symptoms Reported Nose: no symptoms reported Mouth: see HPI Throat: no symptoms reported Respiratory: no symptoms reported Cardiovascular: no symptoms reported Gastrointestinal: no symptoms reported Musculoskeletal: see HPI Skin: no symptoms reported Neurological: No Symptoms Reported Past Djbjuos-Qqfata-Lceuqc Hx Patient Social History Alcohol Use: Regular Use (WEEKENDS AND "WHENEVER THERE'S A BALLGAME" ) Recreational Drug Use: No Smoking Status: Current Everyday Smoker (1 PPD) Type Used: Cigarettes Recent Foreign Travel: No Contact w/Someone Who Travel: No Recent Infectious Disease Expo: No Physical Abuse: No Sexual Abuse: No Surgeries History of Surgeries: Yes (CERVICAL SPINE FUSION, COLONOSCOPY WITH POLYPECTOMY ; LUMBAR SURGERY 02/21/17-[place]) Surgeries: Adenoidectomy, Appendectomy, Orthopedic, Tonsillectomy Respiratory History of Respiratory Disorde: No Cardiovascular History of Cardiac Disorders: No Neurological History of Neurological Disord: No Genitourinary History of Genitourinary Disor: No Gastrointestinal History of Gastrointestinal Di: Yes (COLON POLYPS) Gastrointestinal Disorders: Polyps Musculoskeletal History of Musculoskeletal Dis: Yes (NECK PAIN--S/P FUSION; BACK PAIN-S/P LUMBAR SURGERY) Musculoskeletal Disorders: Chronic Back Pain Endocrine History of Endocrine Disorders: No HEENT History of HEENT Disorders: No Cancer History of Cancer: No Psychosocial History of Psychiatric Problem: No Suicide Risk Score: 0 Integumentary History of Skin or Integumenta: No Blood Transfusions History of Blood Disorders: No Physical Exam Vital Signs Vital Sign - Last 12Hours 03/04/17 03:27 Temp 97.1 Pulse 102 Resp 16 B/P (MAP) 189/100 (129) Pulse Ox 100 O2 Delivery Room Air General Appearance: WD/WN, no apparent distress, other (WEARING A BACK BRACE) Eyes: bilateral eye normal inspection, bilateral eye PERRL Nose: normal inspection Mouth/Throat: mandibular swelling, maxillary swelling, No tongue swollen, trismus, No voice changes, other (SIGNIFICANT SWELLING TO LEFT SIDE OF FACE AND JAW, WITH LARGE DENTAL CARIES NOTED TO LEFT LOWER FIRST MOLAR) Neck: non-tender, full range of motion, supple, normal inspection Cardiovascular: regular rate, rhythm, no murmur Respiratory: normal breath sounds Gastrointestinal: soft Neurologic/Psychiatric: dean for student affairs II-XII nml as tested, no motor/sensory deficits, alert, normal mood/affect, oriented x 3 Skin: normal color, warm/dry Progress/Results/Core Measures Results/Orders Lab Results Laboratory Tests Test 03/04/17 03:35 Range/Units White Blood Count 23.2 H 4.3-11.0 10^3/uL Red Blood Count 5.22 4.35-5.85 10^6/uL Hemoglobin 16.3 13.3-17.7 G/DL Hematocrit 48 40-54 % Mean Corpuscular Volume 93 80-99 FL Mean Corpuscular Hemoglobin 31 25-34 PG Mean Corpuscular Hemoglobin Concent 34 32-36 G/DL Red Cell Distribution Width 13.9 10.0-14.5 % Platelet Count 213 130-400 10^3/uL Mean Platelet Volume 9.2 7.4-10.4 FL Neutrophils (%) (Auto) 62 42-75 % Lymphocytes (%) (Auto) 26 12-44 % Monocytes (%) (Auto) 10 0-12 % Eosinophils (%) (Auto) 2 0-10 % Basophils (%) (Auto) 0 0-10 % Neutrophils # (Auto) 14.3 H 1.8-7.8 X 10^3 Lymphocytes # (Auto) 6.1 H 1.0-4.0 X 10^3 Monocytes # (Auto) 2.3 H 0.0-1.0 X 10^3 Eosinophils # (Auto) 0.4 H 0.0-0.3 10^3/uL Basophils # (Auto) 0.0 0.0-0.1 10^3/uL Neutrophils % (Manual) 60 % Lymphocytes % (Manual) 28 % Monocytes % (Manual) 11 % Band Neutrophils 1 % Blood Morphology Comment NORMAL Sodium Level 139 135-145 MMOL/L Potassium Level 4.6 3.6-5.0 MMOL/L Chloride Level 103 98-107 MMOL/L Carbon Dioxide Level 25 21-32 MMOL/L Anion Gap 11 5-14 MMOL/L Blood Urea Nitrogen 32 H 7-18 MG/DL Creatinine 0.80 0.60-1.30 MG/DL Estimat Glomerular Filtration Rate > 60 BUN/Creatinine Ratio 40 Glucose Level 100 70-105 MG/DL Lactic Acid Level 1.17 0.50-2.00 MMOL/L Calcium Level 9.2 8.5-10.1 MG/DL Total Bilirubin 0.3 0.1-1.0 MG/DL Aspartate Amino Transf (AST/SGOT) 38 H 5-34 U/L Alanine Aminotransferase (ALT/SGPT) 73 H 0-55 U/L Alkaline Phosphatase 72 40-136 U/L Total Protein 6.8 6.4-8.2 GM/DL Albumin 3.9 3.2-4.5 GM/DL Amylase Level 68 25-125 U/L Lipase 58 8-78 U/L My Orders Orders - JULIA MCNAMARA DO Saline Lock/Iv-Start (03/04/17 03:30) Amylase (03/04/17 03:30) Cbc With Automated Diff (03/04/17 03:30) Comprehensive Metabolic Panel (03/04/17 03:30) Lactic Acid Analyzer (03/04/17 03:30) Lipase (03/04/17 03:30) Blood Culture (03/04/17 03:30) Ketorolac Injection (Toradol Injection) (03/04/17 03:30) Ct Maxillofacial W (03/04/17 03:30) Clindamycin Injection (Cleocin Injection (03/04/17 03:30) Manual Differential (03/04/17 03:35) Medications Given in ED Current Medications Medications Dose Ordered Sig/Kavon Route Start Time Stop Time Status Last Admin Dose Admin Clindamycin Phosphate 900 mg/ Sodium Chloride 56 ml @ 100 mls/hr ONCE ONCE IV 03/04/17 03:30 03/04/17 04:03 DC 03/04/17 03:41 100 MLS/HR Vital Signs/I&O Vital Sign - Last 12Hours 03/04/17 03:27 Temp 97.1 Pulse 102 Resp 16 B/P (MAP) 189/100 (129) Pulse Ox 100 O2 Delivery Room Air Blood Pressure Mean: 129 Departure Departure-Patient Inst. Referrals: NO,LOCAL PHYSICIAN (PCP/Family) Primary Care Physician JULIA MCNAMARA DO Mar 04, 2017 03:48
[2017-03-04 03:54] LABS: BASOPHILS % (AUTO) 0 % (0-10); EOSINOPHILS # (AUTO) 0.4 10^3/uL (0.0-0.3); EOSINOPHILS % (AUTO) 2 % (0-10); LYMPHOCYTES # (AUTO) 6.1 X 10^3 (1.0-4.0); LYMPHOCYTES % (AUTO) 26 % (12-44); MEAN CORPUSCULAR HEMOGLOBIN 31 PG (25-34); MEAN CORPUSCULAR HGB CONC 34 G/DL (32-36); MEAN CORPUSCULAR VOLUME 93 FL (80-99); MEAN PLATELET VOLUME 9.2 FL (7.4-10.4); MONOCYTES # (AUTO) 2.3 X 10^3 (0.0-1.0); MONOCYTES % (AUTO) 10 % (0-12); NEUTROPHILS # (AUTO) 14.3 X 10^3 (1.8-7.8); NEUTROPHILS % (AUTO) 62 % (42-75); PLATELET COUNT 213 10^3/uL (130-400); RED BLOOD COUNT 5.22 10^6/uL (4.35-5.85); RED CELL DISTRIBUTION WIDTH 13.9 % (10.0-14.5); WHITE BLOOD COUNT 23.2 10^3/uL (4.3-11.0)
[2017-03-04 04:14] LABS: ALANINE AMINOTRANSFERASE 73 U/L (0-55); ALBUMIN 3.9 GM/DL (3.2-4.5); AMYLASE 68 U/L (25-125); ANION GAP 11 MMOL/L (5-14); ASPARTATE AMINO TRANSFERASE 38 U/L (5-34); BILIRUBIN,TOTAL 0.3 MG/DL (0.1-1.0); BLOOD UREA NITROGEN 32 MG/DL (7-18); BUN/CREATININE RATIO 40; CALCIUM 9.2 MG/DL (8.5-10.1); CARBON DIOXIDE 25 MMOL/L (21-32); CHLORIDE 103 MMOL/L (98-107); GFR ESTIMATED > 60; GLUCOSE 100 MG/DL (70-105); LIPASE 58 U/L (8-78); POTASSIUM 4.6 MMOL/L (3.6-5.0); SODIUM 139 MMOL/L (135-145); TOTAL PROTEIN 6.8 GM/DL (6.4-8.2)
[2017-03-04 04:19] LABS: BAND NEUTROPHILS 1 %; LYMPHOCYTES % (MANUAL) 28 %; NEUTROPHILS % (MANUAL) 60 %
--- OUTSIDE RECORDS SUMMARY | 2017-03-04 06:15 | XMS REPORT | Continuity of Care Document ---
Author Author [employer] [facility] Address Unknown Phone Unavailable Care Team Providers Care Dimension Warehouse Supervisor Name Role Phone [employer] Unavailable Unavailable Problems Medications Allergies, Adverse Reactions, Alerts Immunizations Results Vital Signs Encounters Location Location Details Encounter Type Encounter Number Reason For Visit Attending Provider ADM Date DC Date Status Source INPATIENT [id number] DEMARIO DIAZ 11/12/2016 Active [facility] 11/14/2016 Active [facility] Procedures Plan of Care Social History Assessment and Plan Family History Value Date Source Advance Directives Order Name Results Value Date Source
--- OUTSIDE RECORDS SUMMARY | 2017-03-04 06:15 | XMS REPORT | Clinical Summary ---
Author Author [facility] Organization [facility] Address Unknown Phone Unavailable Care Team Providers Care Pilot Plant Research Technician Name Role Phone PCP Unavailable Source Comments Some departments are not documenting in the electronic medical record. If you do not see the information that you expected, contact Release of Information in the Health Information Management department at [phone] for further assistance in locating additional records.[facility] Allergies No Known Allergies Current Medications Prescription [...]
--- OUTSIDE RECORDS SUMMARY | 2017-03-04 06:25 | XMS REPORT | Continuity of Care Document ---
Author Author [facility] Organization [facility] Address Unknown Phone Unavailable Allergies Active Description Code Type Severity Reaction Onset Reported/Identified Relationship to Patient Clinical Status Yes No Known Allergies NKMA N/A N/A Yes No Allergy Information Available [id number] Drug Allergy Unknown N/A 2014 Medications There is no data. Problems Date Dx Coded Attending Type Code Diagnosis Diagnosed By 10/28/2014 ANGELA MCKEON ANIMAL HUMANE AGENT SUPERVISOR Ot 441.4 10/28/2014 ANGELA MCKEONP Ot 562.10 10/28/2014 ANGELA MCKEONP Ot 608.89 10/28/2014 ANGELA MCKEON ANIMAL HUMANE AGENT SUPERVISOR Ot 441.4 10/28/2014 ANGELA MCKEON ANIMAL HUMANE AGENT SUPERVISOR Ot 562.10 10/28/2014 ANGELA MCKEON ANIMAL HUMANE AGENT SUPERVISOR Ot 608.89 10/29/2014 ANGELA MCKEONP Ot 441.4 10/29/2014 ANGELA MCKEONP Ot 562.10 10/29/2014 ANGELA MCKEONP Ot 608.89 11/16/2014 ANGELA MCKEONP Ot 441.4 11/16/2014 ANGELA MCKEONP Ot 562.10 11/16/2014 ANGELA MCKEON ANIMAL HUMANE AGENT SUPERVISOR Ot 608.89 11/16/2014 ANGELA MCKEON ANIMAL HUMANE AGENT SUPERVISOR Ot 441.4 11/16/2014 ANGELA MCKEONP Ot 562.10 [...] Status Pt. Type Provider Facility Loc./Unit Complaint [id number] 01/17/2015 09:43:00 01/17/2015 23:59:59 [facility] Outpatient JEREMY RICHARDS DO [facility] CARD RUQ PAIN [id number] 01/06/2015 08:57:00 01/06/2015 23:59:59 CLS Outpatient RICHARDS JEREMY LAZARO [facility] RAD RUQ ADB PAIN [id number] 01/05/2015 09:03:00 01/05/2015 11:12:00 DIS Emergency JULIA MCNAMARA DO [facility] ER BLOATING, RT SIDED PAIN [id number] 12/14/2014 14:06:00 12/14/2014 17:40:00 DIS Outpatient JEREMY RICHARDS DO [facility] SDC SCREENING [id number] 12/09/2014 08:17:00 12/09/2014 23:59:59 CLS Outpatient JEREMY RICHARDS DO [facility] PREOP SCREENING [id number] 10/26/2014 12:15:00 10/26/2014 23:59:59 CLS Outpatient ANGELA MCKEON ANIMAL HUMANE AGENT SUPERVISOR [facility] RAD TESTICULAR SWELLING [id number] 02/03/2015 07:40:00 02/03/2015 11:51:00 DIS Outpatient Sherif Page [facility] DS Gastro COLONP [id number] 02/01/2015 13:44:00 02/01/2015 23:59:00 DIS Outpatient Sherif Pagem [facility] Mur Gasto RLQP, POLYP [id number] 02/18/2017 08:46:02 02/18/2017 23:59:59 CLS Outpatient LATRICIA LUCAS [id number] 02/18/2017 08:35:16 02/18/2017 23:59:59 CLS Outpatient LATRICIA LUCAS [id number] 02/13/2017 08:41:39 02/13/2017 23:59:59 CLS Outpatient LATRICIA LUCAS [id number] 11/08/2016 10:11:34 11/08/2016 23:59:59 CLS Outpatient LATRICIA LUCAS [id number] 09/13/2016 08:26:48 09/13/2016 23:59:59 [facility] Outpatient LATRICIA LUCAS [id number] 06/19/2016 08:37:20 06/19/2016 23:59:59 CLS Outpatient LATRICIA LUCAS [id number] 02/20/2016 09:09:32 02/20/2016 23:59:59 CLS Outpatient LATRICIA LUCAS Sherif [id number] 12/29/2015 08:12:03 12/29/2015 23:59:59 CLS Outpatient LANCE LATRICIA Gorman [id number] 12/19/2015 08:50:39 12/19/2015 23:59:59 CLS Outpatient LATRICIA LUCAS Sherif [id number] 10/17/2015 16:52:53 10/17/2015 23:59:59 CLS Outpatient LANCE LATRICIA Gorman [id number] 05/03/2015 08:11:48 05/03/2015 23:59:59 CLS Outpatient LANCE LATRICIA Gorman [id number] 03/23/2015 09:44:25 03/23/2015 23:59:59 CLS Outpatient LANCE LATRICIA Gorman [id number] 03/20/2015 20:47:37 03/20/2015 23:59:59 CLS Outpatient Sherif Gu Gio [id number] 01/27/2015 15:18:25 01/27/2015 23:59:59 CLS Outpatient Angelique, V S [id number] 01/07/2015 11:57:46 01/07/2015 23:59:59 CLS Outpatient Angelique, V S [id number] 12/28/2014 10:41:00 12/28/2014 23:59:59 CLS Outpatient LATRICIA LUCAS [id number] 03/05/2014 10:01:23 03/05/2014 23:59:59 CLS Outpatient LATRICIA LUCAS [id number] 12/15/2013 08:43:22 12/15/2013 23:59:59 CLS Outpatient LATRICIA LUCAS
--- NOTE | 2017-03-04 07:40 | Diagnostic Imaging Report ---
PROCEDURE: CT maxillofacial with contrast. TECHNIQUE: After intravenous administration of contrast, axial images were obtained through the face and reformatted into coronal and sagittal planes. INDICATION: Left-sided cheek and jaw pain, in addition swelling yesterday morning that has become progressively worse. He was being treated for an abscess prior to the recent surgery, cavity noted in the left upper canine. CONTRAST: 75 cc Omnipaque 350 was administered. COMPARISON STUDY: CT scan of the paranasal sinuses from 2007. FINDINGS: The exam is somewhat limited due to this being done in bone algorithm and not soft tissue algorithm. Soft tissue swelling is seen over the left anterior mandibular area and maxillary region. The paranasal sinuses appear normal. The orbits are normal. Phlegmonous changes are seen adjacent to the left lower teeth. Questionable ill-defined abscess is present. This may just be phlegmonous changes. Periodontal disease is present. The most prominent is in the left posterior molar which is probably the site of the abscesses, there appears to be a small amount adjacent air in the buccal mucosa. No definite abnormal adenopathy is present. Degenerative and postoperative changes are present in the spine. IMPRESSION: There is left periodontal disease with adjacent phlegmonous changes and probable small abscess. Exam is somewhat limited due to this being performed in bone algorithm. Dictated by: Dictated on workstation # [id number]
[2017-03-04] MEDS: fentaNYL INJECTION 100 MCG/2 ML AMP IV PRN ×5 (07:58→15:44)
[2017-03-04] MEDS: D5 1/2 NS 1000 ML IV SOLUTION 1,000 ML IV SCH ×2 (08:01→15:12)
[2017-03-04] MEDS ORDERED: GABA-488 PO (08:16)
[2017-03-04] MEDS ORDERED: OXYC20TA3 PO (08:16)
[2017-03-04 08:56] VITALS: BP 155/87
[2017-03-04] MEDS ORDERED: INFLUENZA TRIvalent 2017-2018 0.5 ML/45 MCG SYR IM ONE (09:00)
[2017-03-04] MEDS: KETOROLAC 30 MG/ML VIAL IV PRN ×2 (10:01→16:50)
[2017-03-04] MEDS: CLINDAMYCIN 900 MG/NS 50 ML IVPB IV SCH ×6 (10:04→20:41)
--- NOTE | 2017-03-04 11:42 | History & Physical-Hospitalist ---
HPI History of Present Illness: HPI/Chief Complaint Pt is a 57yoCM With a PMH of dental abscess and chronic back pain s/p surgery 12 days ago. He reports he had a dental abscess prior to surgery but completed antibiotic therapy before surgery and has had no problems until yesterday. He started ot develop jaw and neck pain with swelling yesterday. He attempted salt water rinses and compresses without relief. His pain continued to worsen prompting him to seek evaluation in the ER. He denies fever but has had chills. His previous abscess resolved with antibiotics only. He has never had dental surgery. His CT showed probable small abscess. He was admitted for IV antibiotic and will be see by Dr Pollard today. Source: patient Date Seen 03/04/17 Time Seen by Provider: 10:50 Attending Physician Maryam Walton MD PCP No,Local Physician Referring Physician Date of Admission Mar 04, 2017 at 06:00 Home Medications & Allergies Home Medications Reviewed patient Home Medication Reconciliation Form Allergies Allergies Coded Allergies No Known Drug Allergies (Ftymnvntzo89/18/17) Past Fmbjhnx-Sjszyb-Vbzwwo Hx Patient Social History Alcohol Use: Regular Use Recreational Drug Use: No Smoking Status: Current Everyday Smoker Type Used: Cigarettes Physical Abuse Screen: No Sexual Abuse: No Recent Foreign Travel: No Contact w/other who traveled: No Recent Hopitalizations: Yes ([facility] [place] [facility]) Recent Infectious Disease Expo: No Surgeries Yes Adenoidectomy, Appendectomy, Orthopedic, Tonsillectomy Respiratory No Cardiovascular No Neurological No Genitourinary No Gastrointestinal Yes (COLON POLYPS) Polyps Musculoskeletal Yes (NECK PAIN--S/P FUSION; BACK PAIN-S/P LUMBAR SURGERY) Chronic Back Pain Endocrine History of Endocrine Disorders: No HEENT History of HEENT Disorders: No Cancer No Psychosocial History of Psychiatric Problem: No Integumentary History of Skin or Integumenta: No Blood Transfusions History of Blood Disorders: No Review of Systems Constitutional: chills, No fever, No weakness EENTM: dental problems, mouth pain, mouth swelling, No throat pain, No throat swelling Respiratory: No cough, No dyspnea on exertion, No short of breath Cardiovascular: No chest pain, No edema, No palpitations Gastrointestinal: No abdominal pain, No constipation, No diarrhea, No loss of appetite, No nausea, No vomiting Genitourinary: No dysuria, No frequency Musculoskeletal: back pain, No muscle pain Skin: no symptoms reported Psychiatric/Neurological: No Symptoms Reported Physical Exam Physical Exam Vital Signs Vital Sign - Last 12Hours 03/04/17 03:27 Temp 97.1 Pulse 102 Resp 16 B/P (MAP) 189/100 (129) Pulse Ox 100 O2 Delivery Room Air Capillary Refill : Less Than 3 Seconds General Appearance: No Apparent Distress, WD/WN HEENT: PERRL/EOMI, Moist Mucous Membranes, Other (swelling of skin of left jaw) Neck: Full Range of Motion, Non Tender, Supple Respiratory: Lungs Clear, No Respiratory Distress Cardiovascular: Regular Rate, Rhythm, No Murmur Gastrointestinal: Normal Bowel Sounds, Non Tender, Soft Extremity: Normal Capillary Refill, No Calf Tenderness Neurologic/Psychiatric: Alert, Oriented x3, Normal Mood/Affect Skin: Normal Color, Warm/Dry Results Results/Procedures Lab Laboratory Tests 03/04/17 03:[address] MAXILLOFACIAL W PROCEDURE: CT maxillofacial with contrast. TECHNIQUE: After intravenous administration of contrast, axial images were obtained through the face and reformatted into coronal and sagittal planes. INDICATION: Left-sided cheek and jaw pain, in addition swelling yesterday morning that has become progressively worse. He was being treated for an abscess prior to the recent surgery, cavity noted in the left upper canine. CONTRAST: 75 cc Omnipaque 350 was administered. COMPARISON STUDY: CT scan of the paranasal sinuses from 2006. FINDINGS: The exam is somewhat limited due to this being done in bone algorithm and not soft tissue algorithm. Soft tissue swelling is seen over the left anterior mandibular area and maxillary region. The paranasal sinuses appear normal. The orbits are normal. Phlegmonous changes are seen adjacent to the left lower teeth. Questionable ill-defined abscess is present. This may just be phlegmonous changes. Periodontal disease is present. The most prominent is in the left posterior molar which is probably the site of the abscesses, there appears to be a small amount adjacent air in the buccal mucosa. No definite abnormal adenopathy is present. Degenerative and postoperative changes are present in the spine. IMPRESSION: There is left periodontal disease with adjacent phlegmonous changes and probable small abscess. Exam is somewhat limited due to this being performed in bone algorithm. Assessment/Plan Admission Diagnosis Periodontal abscess Diagnosis/Problems Diagnosis/Problems (1) Sepsis Status: Resolved Assessment & Plan: tachycardiac to 102 on arrival with WBC of [address] Blood cultures obtained On Clindamycin Lactic normal- not severe sepsis Qualifiers: Qualified Codes: A41.9 - Sepsis, unspecified organism (2) Periodontal abscess Status: Acute Assessment & Plan: Continue on Clindamycin Dr. Pollard consulted Panorex ordered (3) Chronic back pain greater than 3 months duration Status: Chronic Assessment & Plan: Has been weaning off narcotics recently Currently pain well controlled with Fentanyl (4) Elevated blood pressure reading Assessment & Plan: No history of HTN Trend, elevation may be due to pain (5) Tobacco abuse Status: Chronic Assessment & Plan: Recommended cessation Clinical Quality Measures DVT/VTE Risk/Contraindication: Risk Factor Score Per Nursin RFS Level Per Nursing on Admit: 4+=Very High MELANY BRUSH MD Mar 04, 2017 11:42
[2017-03-04 12:00] VITALS: BP 149/82
[2017-03-04 16:15] VITALS: BP 186/93
--- NOTE | 2017-03-04 16:44 | Diagnostic Imaging Report ---
INDICATION: Left lower tooth abscess. FINDINGS: A Panorex of the mandible shows some lucency around the roots of the furthest back left mandibular molar. This could be due to a periapical abscess. The remainder of the mandible is unremarkable. IMPRESSION: Lucency around the root of the left fifth molar which could be secondary to a periodontal abscess. Dictated by: Dictated on workstation # [id number]
[2017-03-04] MEDS ORDERED: NON-FORMULARY MEDICATION 1 EA EA (Oxycodone HCl 20 MG) PO PRN (16:45)
[2017-03-04] MEDS ORDERED: NON-FORMULARY MEDICATION 1 EA EA (Zolpidem Tartrate (Ambien) 10 MG) PO PRN (16:45)
[2017-03-04] MEDS: morphine INJ 4 MG/ML 1 ML (VIAL/SYRINGE) IVP PRN ×4 (16:50→22:38)
[2017-03-04] MEDS ORDERED: ZOLPIDEM 5 MG (AMBIEN) TAB PO PRN (17:30)
[2017-03-04 19:13] VITALS: BP 141/67
[2017-03-04] MEDS ORDERED: GABAPENTIN 300 MG (NEURONTIN) CAP PO SCH (21:00)
[2017-03-04 21:31] LABS: BASOPHILS % (AUTO) 0 % (0-10); EOSINOPHILS # (AUTO) 0.4 10^3/uL (0.0-0.3); EOSINOPHILS % (AUTO) 2 % (0-10); LYMPHOCYTES # (AUTO) 4.4 X 10^3 (1.0-4.0); LYMPHOCYTES % (AUTO) 21 % (12-44); MEAN CORPUSCULAR HEMOGLOBIN 31 PG (25-34); MEAN CORPUSCULAR HGB CONC 34 G/DL (32-36); MEAN CORPUSCULAR VOLUME 93 FL (80-99); MONOCYTES # (AUTO) 1.7 X 10^3 (0.0-1.0); MONOCYTES % (AUTO) 8 % (0-12); NEUTROPHILS # (AUTO) 14.9 X 10^3 (1.8-7.8); NEUTROPHILS % (AUTO) 69 % (42-75); PLATELET COUNT 174 10^3/uL (130-400); RED BLOOD COUNT 4.84 10^6/uL (4.35-5.85); WHITE BLOOD COUNT 21.4 10^3/uL (4.3-11.0)
[2017-03-05 00:15] VITALS: BP 167/85
[2017-03-05] MEDS: D5 1/2 NS 1000 ML IV SOLUTION 1,000 ML IV SCH ×2 (01:03→06:30)
[2017-03-05] MEDS: morphine INJ 4 MG/ML 1 ML (VIAL/SYRINGE) IVP PRN ×2 (01:10→06:19)
[2017-03-05 04:00] VITALS: BP 144/88
[2017-03-05] MEDS: CLINDAMYCIN 900 MG/NS 50 ML IVPB IV SCH ×2 (05:11)
[2017-03-05 06:05] LABS: BASOPHILS % (AUTO) 0 % (0-10); EOSINOPHILS # (AUTO) 0.3 10^3/uL (0.0-0.3); EOSINOPHILS % (AUTO) 2 % (0-10); LYMPHOCYTES # (AUTO) 3.2 X 10^3 (1.0-4.0); LYMPHOCYTES % (AUTO) 17 % (12-44); MEAN CORPUSCULAR HEMOGLOBIN 31 PG (25-34); MEAN CORPUSCULAR HGB CONC 33 G/DL (32-36); MEAN CORPUSCULAR VOLUME 93 FL (80-99); MEAN PLATELET VOLUME 9.5 FL (7.4-10.4); MONOCYTES # (AUTO) 1.4 X 10^3 (0.0-1.0); MONOCYTES % (AUTO) 8 % (0-12); NEUTROPHILS # (AUTO) 13.3 X 10^3 (1.8-7.8); NEUTROPHILS % (AUTO) 73 % (42-75); PLATELET COUNT 185 10^3/uL (130-400); RED BLOOD COUNT 4.99 10^6/uL (4.35-5.85); WHITE BLOOD COUNT 18.2 10^3/uL (4.3-11.0)
[2017-03-05 06:29] LABS: ALANINE AMINOTRANSFERASE 51 U/L (0-55); ALBUMIN 3.7 GM/DL (3.2-4.5); ANION GAP 9 MMOL/L (5-14); ASPARTATE AMINO TRANSFERASE 16 U/L (5-34); BILIRUBIN,TOTAL 0.8 MG/DL (0.1-1.0); BLOOD UREA NITROGEN 15 MG/DL (7-18); BUN/CREATININE RATIO 23; CALCIUM 9.2 MG/DL (8.5-10.1); CARBON DIOXIDE 25 MMOL/L (21-32); CHLORIDE 104 MMOL/L (98-107); CREATININE SERUM 0.65 MG/DL (0.60-1.30); GFR ESTIMATED > 60; GLUCOSE 106 MG/DL (70-105); POTASSIUM 4.2 MMOL/L (3.6-5.0); SODIUM 138 MMOL/L (135-145); TOTAL PROTEIN 6.2 GM/DL (6.4-8.2)
--- NOTE | 2017-03-05 10:45 | Discharge Summary-Hospitalist ---
Diagnosis/Chief Complaint Date of Admission Mar 04, 2017 at 06:00 Date of Discharge Mar 05, 2017 at 06:55 Admission Diagnosis Periodontal abscess Discharge Diagnosis (1) Sepsis Status: Resolved Assessment & Plan: tachycardiac to 102 on arrival with WBC of 23 Only leukocytosis remained on departure Abscess noted on CT and panorex Blood cultures obtained in ER On Clindamycin Lactic normal- not severe sepsis (2) Periodontal abscess Status: Acute Assessment & Plan: Continue on Clindamycin Dr. Pollard consulted Panorex revealed abscess at left molar (3) Chronic back pain greater than 3 months duration Status: Chronic Assessment & Plan: Has been weaning off narcotics recently Was on morphine and hydrocodone (4) Elevated blood pressure reading Assessment & Plan: No history of HTN Trend, elevation may be due to pain (5) Tobacco abuse Status: Chronic Assessment & Plan: Recommended cessation Discharge Summary Consultations Dr. Pollard OMFS Discharge Physical Examination Allergies: Coded Allergies: No Known Drug Allergies (Unverified , 03/04/17) Vitals & I&Os Vital Signs Date Time Temp Pulse Resp B/P (MAP) Pulse Ox O2 Delivery O2 Flow Rate FiO2 03/05/17 04:00 98.5 83 20 144/88 (106) 95 Room Air Hospital Course Pt was admitted for a periodontal abscess. He met sepsis criteria and was started on IV abx for treatment. Dr Pollard was consulted and planned to see in his clinic on 03/05 for surgical removal of abscess. Prior to my arrival to the hospital this morning patient request to leave AMA to obtain second opinion from his dentist. Per RN he signed appropriate paperwork for AMA dismissal. I was notified after departure and unable to discuss risks of leaving prior to medical optimization. Labs (last 24 hrs) Laboratory Tests 03/04/17 21:20: White Blood Count 21.4H, Red Blood Count 4.84, Hemoglobin 15.1, Hematocrit 45, Mean Corpuscular Volume 93, Mean Corpuscular Hemoglobin 31, Mean Corpuscular Hemoglobin Concent 34, Red Cell Distribution Width 14.0, Platelet Count 174, Mean Platelet Volume 9.0, Neutrophils (%) (Auto) 69, Lymphocytes (%) (Auto) 21, Monocytes (%) (Auto) 8, Eosinophils (%) (Auto) 2, Basophils (%) (Auto) 0, Neutrophils # (Auto) 14.9H, Lymphocytes # (Auto) 4.4H, Monocytes # (Auto) 1.7H, Eosinophils # (Auto) 0.4H, Basophils # (Auto) 0.0 03/05/17 05:23: White Blood Count 18.2H, Red Blood Count 4.99, Hemoglobin 15.4, Hematocrit 47, Mean Corpuscular Volume 93, Mean Corpuscular Hemoglobin 31, Mean Corpuscular Hemoglobin Concent 33, Red Cell Distribution Width 14.0, Platelet Count 185, Mean Platelet Volume 9.5, Neutrophils (%) (Auto) 73, Lymphocytes (%) (Auto) 17, Monocytes (%) (Auto) 8, Eosinophils (%) (Auto) 2, Basophils (%) (Auto) 0, Neutrophils # (Auto) 13.3H, Lymphocytes # (Auto) 3.2, Monocytes # (Auto) 1.4H, Eosinophils # (Auto) 0.3, Basophils # (Auto) 0.0, Sodium Level 138, Potassium Level 4.2, Chloride Level 104, Carbon Dioxide Level 25, Anion Gap 9, Blood Urea Nitrogen 15, Creatinine 0.65, Estimat Glomerular Filtration Rate > 60, BUN/ Creatinine Ratio 23, Glucose Level 106H, Calcium Level 9.2, Total Bilirubin 0.8 , Aspartate Amino Transf (AST/SGOT) 16, Alanine Aminotransferase (ALT/SGPT) 51, Alkaline Phosphatase 64, Total Protein 6.2L, Albumin 3.7 Pending Labs Laboratory Tests 03/05/17 05:23: White Blood Count 18.2, Red Blood Count 4.99, Hemoglobin 15.4, Hematocrit 47, Mean Corpuscular Volume 93, Mean Corpuscular Hemoglobin 31, Mean Corpuscular Hemoglobin Concent 33, Red Cell Distribution Width 14.0, Platelet Count 185, Mean Platelet Volume 9.5, Neutrophils (%) (Auto) 73, Lymphocytes (%) (Auto) 17, Monocytes (%) (Auto) 8, Eosinophils (%) (Auto) 2, Basophils (%) (Auto) 0, Neutrophils # (Auto) 13.3, Lymphocytes # (Auto) 3.2, Monocytes # (Auto) 1.4, Eosinophils # (Auto) 0.3, Basophils # (Auto) 0.0, Sodium Level 138, Potassium Level 4.2, Chloride Level 104, Carbon Dioxide Level 25, Anion Gap 9, Blood Urea Nitrogen 15, Creatinine 0.65, Estimat Glomerular Filtration Rate > 60, BUN/ Creatinine Ratio 23, Glucose Level 106, Calcium Level 9.2, Total Bilirubin 0.8, Aspartate Amino Transf (AST/SGOT) 16, Alanine Aminotransferase (ALT/SGPT) 51, Alkaline Phosphatase 64, Total Protein 6.2, Albumin 3.7 Discharge Home Medications: Active Scripts Active Reported Oxycodone HCl 20 Mg Tablet 20 Mg PO TID PRN Gabapentin 300 Mg Capsule 300 Mg PO BID Ambien (Zolpidem Tartrate) 10 Mg Tablet 10 Mg PO HS PRN Instructions to patient/family Please see electronic discharge instructions given to patient. Clinical Quality Measures DVT/VTE Risk/Contraindication: Risk Factor Score Per Nursin RFS Level Per Nursing on Admit: 4+=Very High Problem Qualifiers (1) Sepsis: Sepsis type: sepsis due to unspecified organism Qualified Codes: A41.9 - Sepsis, unspecified organism MELANY BRUSH MD Mar 05, 2017 10:45
== END 2017-03-05 06:55 | disposition left against medical advice (07) | DRG 872 ==
LOC: EDUNIT# 03:18 → ER 03:20 → 4TH 06:00
PROVIDERS: ADMIT Internal Medicine; ATTEND Internal Medicine
DX: A41.9 Sepsis, unspecified organism (principal); K04.7 Periapical abscess without sinus; M54.5 Low back pain; R03.0 Elevated blood-pressure reading, without diagnosis of hypertension; F17.210 Nicotine dependence, cigarettes, uncomplicated; Z86.010 Personal history of colon polyps; Z98.1 Arthrodesis status
CPT/HCPCS: 36415; 70355; 70487; 80053; 82150; 83605; 83690; 85007; 85025; 85027; 87040; 96365; 96375